=== PATIENT | female | born 1990 | race Caucasian/White ===

== ENCOUNTER 2020-05-20 12:08 | Emergency (ER) | payer BC, SELFPAY ==
[2020-05-20 12:25] VITALS: BP 112/79; PULSE 94; RESP 14; TEMP 36.8; O2SAT 98; BMI 24.2
--- NOTE | 2020-05-20 12:30 | HMH.EDUTC ---
[facility] [place] Clinical Impression: Exposure to COVID-19 virus, Viral syndrome Disposition: Home, Self-Care Condition on Discharge: Good Instructions: Preventing the Spread of Coronavirus Discharge Instructions Additional Instructions: Drink plenty of fluids. Take tylenol for pain or fever. Return if you begin to have difficulty breathing. Follow up with your regular doctor. GO TO THE ER FOR ANY WORSENING SYMPTOMS Prescriptions: Ondansetron [Zofran 4mg ODT] 4 mg PO Q8HP PRN #12 tab.rapdis PRN Reason: Nausea Transmission Status: Received by [id number] Referrals: Lila Calixto MD [Primary Care Provider] - Time of Disposition: 12:40 Medical Decision Making - Medical Records Medical records reviewed: No: I reviewed the patient's medical records. - Bryant Inquiry Pt receiving controlled substance: No Vital Signs: 05/20/20 12:25 05/20/20 12:42 Temperature 98.2 F 98.2 F Temperature Source Oral Pulse Rate 94 H Pulse Rate [Right Brachial] 94 H Respiratory Rate 14 14 Blood Pressure 112/79 Blood Pressure [Right Arm] 112/79 Blood Pressure Mean [Right Arm] 90 Blood Pressure Source [Right Arm] Automatic Cuff Blood Pressure Position [Right Arm] Sitting 02 Sat by Pulse Oximetry 98 Oxygen Delivery Method Room Air Orders (Tests/Meds): ORDERS Category Date Time Status Covid-19 Nasal PCR Sendout Dirk Routine Lab 05/20/20 12:20 Received [facility] - General Stated complaint: covid test Time Seen by Provider: 05/20/20 12:31 - History of Present Illness Provider Complaint: She states that she was exposed to covid at her workplace last week. She was sent here to get tested for covid. She has had some nausea and diarrhea. - Related Data Home Medications Medication Instructions Recorded Confirmed Buspirone HCl [Buspar 5mg tablet] 7.5 mg PO BIDP PRN 05/27/19 05/27/19 Escitalopram Oxalate [Lexapro] 10 mg PO DAILY 05/27/19 05/27/19 Previous Rx's Medication Instructions Recorded Potassium Chloride [Klor-con 20 20 meq PO DAILY #5 tab 05/27/19 mEq tablet] Propranolol HCl [Propranolol HCl 120 mg PO DAILY 30 Days #30 05/27/19 ER] cap.sa.24h hydrOXYzine pamoate [Vistaril] 25 mg PO Q6H PRN #20 cap 06/09/19 Ondansetron [Zofran 4mg ODT] 4 mg PO Q8HP PRN #12 tab.rapdis 05/20/20 Allergies Allergy/AdvReac Type Severity Reaction Status Date / Time cephalexin [From Keflex] Allergy Intermediate rash and Verified 07/09/18 12:54 throat tightness [facility] History - Hepatitis A Screen Attestation statement:: This patient has been screened for Hepatitis A risk factors. I have reviewed the patient's past medical history: Yes Laterality Cases: Bilateral: Myringotomy (Ear Tubes) Amputation: No Fractures: No Comment: ovarian cyst removed, wisdom teeth removed. - Social History Smoking Status: Current every day smoker Tobacco Type: cigarettes # Packs/Day (cigarettes): 1 Alcohol Intake: never Occupational Status: employed Housing: house ROS Obtained: Yes All systems reviewed & no additional complaints - Constitutional Constitutional: Reports system reviewed and no additional complaints, except as docu - Eyes Eyes: Reports system reviewed and no additional complaints, except as docu - ENT Ears, Nose, Mouth, and Throat: Reports system reviewed and no additional complaints, except as docu - Cardiovascular Cardiovascular: Reports system reviewed and no additional complaints, except as docu - Respiratory Respiratory: Yes system reviewed and no additional complaints, except as docu - Gastrointestinal Gastrointestingal: Reports: system reviewed and no additional complaints, except as docu Physical Exam - General General appearance: alert, in no apparent distress - Head Head exam: atraumatic, normocephalic, normal inspection - Eye Eye exam: Present: normal appearance, PERRL, EOMI - ENT ENT exam: Present: normal e
[2020-05-20 12:42] VITALS: BP 112/79; PULSE 94; RESP 14; TEMP 36.8; O2SAT 98
[2020-05-22 06:04] LABS: Covid-19 Nasal PCR Sendout Lex NOT DETECTED
== END 2020-05-20 12:45 | disposition home or self-care (01) ==
PROVIDERS: Emergency Provider Nurse Practitioner Family; PCP Family Medicine
DX: Z20.828 Contact with and (suspected) exposure to other viral communicable diseases (principal); B34.9 Viral infection, unspecified; F17.210 Nicotine dependence, cigarettes, uncomplicated
CPT/HCPCS: 99201; U0004

== ENCOUNTER → 2021-02-25 14:05 | Outpatient (CLI) | payer BC, SELFPAY | PROVIDERS: PCP Family Medicine; Visit Provider Nurse Practitioner | DX: Z20.822 Contact with and (suspected) exposure to COVID-19 (principal) | CPT/HCPCS: C9803; U0003; U0005 ==

== ENCOUNTER → 2021-04-21 10:18 | Outpatient (CLI) | payer BC, SELFPAY | PROVIDERS: Visit Provider Nurse Practitioner | DX: Z20.822 Contact with and (suspected) exposure to COVID-19 (principal) | CPT/HCPCS: C9803; U0003; U0005 ==

== ENCOUNTER → 2021-04-24 12:15 | Outpatient (CLI) | payer BC, SELFPAY | PROVIDERS: PCP Family Medicine; Visit Provider Nurse Practitioner | DX: Z20.822 Contact with and (suspected) exposure to COVID-19 (principal) | CPT/HCPCS: C9803; U0003; U0005 ==

== ENCOUNTER 2021-05-05 09:44 | Emergency (ER) | payer BC, SELFPAY ==
[2021-05-05 11:14] VITALS: BP 117/81; PULSE 86; RESP 16; TEMP 36.5; O2SAT 97; BMI 24.2
[2021-05-05 11:14] LABS: UTC Strep Screen (Rapid) Positive (Negative)
[2021-05-05 11:18] VITALS: BP 117/81; PULSE 86; RESP 16; TEMP 36.5
--- NOTE | 2021-05-05 11:18 | HMH.EDUTC ---
[facility] [place] Clinical Impression: Strep throat Disposition: Home, Self-Care Condition on Discharge: Good Instructions: Strep Throat, DI for Strep Throat Additional Instructions: Drink plenty of fluids. Take tylenol or ibuprofen for pain or fever. Take the medications as directed. Follow up with your regular doctor. GO TO THE ER FOR ANY WORSENING SYMPTOMS Throw your tooth brush away and get a new one. Prescriptions: Brompheniramine/Pseudoephed/Dm [Bromfed Dm Cough Syrup] 5 ml PO Q6HP PRN #240 ml PRN Reason: Cough Transmission Status: Received by [facility] Amoxicillin/Potassium Clav [Augmentin 500mg tab] 500 mg PO TID #30 tab Transmission Status: Received by [facility] predniSONE [Deltasone 10mg tablet] 10 mg PO BID 4 Days #8 tab Transmission Status: Received by [facility] Referrals: Lila Calixto MD [Primary Care Provider] - Time of Disposition: 11:38 Medical Decision Making - Medical Records Medical records reviewed: No: I reviewed the patient's medical records. - Bryant Inquiry Pt receiving controlled substance: No Vital Signs: 05/05/21 11:14 05/05/21 11:18 Temperature 97.7 F 97.7 F Temperature Source Oral Pulse Rate 86 Pulse Rate [Left] 86 Respiratory Rate 16 16 Blood Pressure 117/81 Blood Pressure [Right Arm] 117/81 Blood Pressure Mean [Right Arm] 93 02 Sat by Pulse Oximetry 97 - Lab Data Lab results reviewed: Yes: I reviewed the patient's lab results. Lab Results 05/05/21 10:52: Strep Scn Rapid Clinic Positive [facility] [place] - General Stated complaint: fever, chest congestion Time Seen by Provider: 05/05/21 11:18 Mode of Arrival: Ambulatory Source of Information: Patient Limitations: No Limitations Description of Symptoms (Recalled from Triage Doc. by RN): pt c/o cough and nasal/chest congestion. HEENT Symptoms (Recalled from RN notes): Yes (nasal congestion) Resp Symptoms (Recalled from RN notes): Yes (cough and chest congestion) Skin Symptoms (Recalled from RN notes): No MS Symptoms (Recalled from RN notes): No Functional Status (Recalled from RN notes): na - History of Present Illness Provider Complaint: She c/o sore throat and feeling bad for the past 4 days. - Related Data Home Medications Medication Instructions Recorded Confirmed Buspirone HCl [Buspar 5mg tablet] 7.5 mg PO BIDP PRN 05/27/19 05/27/19 Escitalopram Oxalate [Lexapro] 10 mg PO DAILY 05/27/19 05/27/19 Previous Rx's Medication Instructions Recorded Potassium Chloride [Klor-con 20 20 meq PO DAILY #5 tab 05/27/19 mEq tablet] Propranolol HCl [Propranolol HCl 120 mg PO DAILY 30 Days #30 05/27/19 ER] cap.sa.24h hydrOXYzine pamoate [Vistaril] 25 mg PO Q6H PRN #20 cap 06/09/19 Ondansetron [Zofran 4mg ODT] 4 mg PO Q8HP PRN #12 tab.rapdis 05/20/20 Amoxicillin/Potassium Clav 500 mg PO TID #30 tab 05/05/21 [Augmentin 500mg tab] Brompheniramine/Pseudoephed/Dm 5 ml PO Q6HP PRN #240 ml 05/05/21 [Bromfed Dm Cough Syrup] predniSONE [Deltasone 10mg tablet] 10 mg PO BID 4 Days #8 tab 05/05/21 Allergies Allergy/AdvReac Type Severity Reaction Status Date / Time cephalexin [From Keflex] Allergy Intermediate rash and Verified 07/09/18 12:54 throat tightness - Worker's Comp Is this a Worker's Comp case?: No [facility] History - Hepatitis A Screen Drug use history?: No High risk sexual behaviors?: No History of sexually transmitted infection?: No Currently employed?: No Childcare worker?: No Do you have indoor plumbing?: Yes Do you have electricity?: Yes Attestation statement:: This patient has been screened for Hepatitis A risk factors. I have reviewed the patient's past medical history: Yes Laterality Cases: Bilateral: Myringotomy (Ear Tubes) Amputation: No Fractures: No Comment: ovarian cyst removed, wisdom teeth removed. - Social History Smoking Status: Current every day smoker Tobacco Typ
== END 2021-05-05 11:49 | disposition home or self-care (01) ==
PROVIDERS: Emergency Provider Nurse Practitioner Family; PCP Family Medicine
DX: J02.0 Streptococcal pharyngitis (principal); F17.210 Nicotine dependence, cigarettes, uncomplicated
CPT/HCPCS: 87880; 99202; G0463

== ENCOUNTER → 2021-07-22 12:00 | Outpatient (CLI) | payer BC, SELFPAY ==
[2021-07-23 07:11] LABS: Covid-19 Nasal PCR Sendout Lex NOT DETECTED
== END ==
PROVIDERS: PCP Family Medicine; Visit Provider Nurse Practitioner
DX: Z20.822 Contact with and (suspected) exposure to COVID-19 (principal)
CPT/HCPCS: C9803; U0004; U0005

== ENCOUNTER 2021-07-24 09:14 | Emergency (ER) | payer BC, SELFPAY ==
[2021-07-24 09:58] VITALS: BP 127/88; PULSE 86; RESP 19; TEMP 36.7; O2SAT 98; BMI 25.0
[2021-07-24 10:22] LABS: Adenovirus,PCR Not Detected (NotDetected); Bordetella Pertussis Not Detected (NotDetected); Chlamydophila Pneumoniae, PCR Not Detected (NotDetected); Coronavirus 19, PCR Not Detected (NotDetected); Coronavirus 229E Not Detected (NotDetected); Coronavirus NL63 Not Detected (NotDetected); Coronavirus OC43 Not Detected (NotDetected); Coronovirus HKU1,PCR Not Detected (NotDetected); Human Metapneumovirus Not Detected (NotDetected); Influenza A, PCR Not Detected (NotDetected); Influenza AH1, 2009 Not Detected (NotDetected); Influenza AH1, PCR Not Detected (NotDetected); Influenza AH3,PCR Not Detected (NotDetected); Influenza B, PCR Not Detected (NotDetected); Mycoplasma Pneumoniae, PCR Not Detected (NotDetected); Parainfluenza 1, PCR Not Detected (NotDetected); Parainfluenza 2, PCR Not Detected (NotDetected); Parainfluenza 3, PCR Not Detected (NotDetected); Parainfluenza 4, PCR Not Detected (NotDetected); Respiratory Syncytial Virus Not Detected (NotDetected); Rhinovirus/Enterovirus Not Detected (NotDetected)
--- NOTE | 2021-07-24 10:31 | HMH.EDUTC ---
[facility] [place] Clinical Impression: Viral syndrome, Exposure to COVID-19 virus Disposition: Home, Self-Care Condition on Discharge: Good Instructions: DI for COVID-19 (Suspected or Confirmed ), Preventing the Spread of Coronavirus Discharge Instructions Additional Instructions: Drink plenty of fluids. Take tylenol or ibuprofen for pain or fever. Take the medications as directed. Follow up with your regular doctor. GO TO THE ER FOR ANY WORSENING SYMPTOMS Quarantine until you know the results of your covid-19 test. Notify your school or workplace of your results and follow their instructions regarding return to work/school. The cough medication (promethazine dm) will make you drowsy, so don't drive or operate heavy machinery after taking it. Prescriptions: Ibuprofen [Ibuprofen 600mg Tablet] 600 mg PO Q6HP PRN #30 tab PRN Reason: Mild Pain [facility] Promethazine/Dextromethorphan [Promethazine-Dm Syrup] 5 ml PO Q6HP PRN #240 ml PRN Reason: Cough Transmission Status[facility] Ondansetron [Zofran 4mg ODT] 4 mg PO Q8HP PRN #20 tab PRN Reason: Nausea Transmission [facility] Referrals: Lila Calixto MD [Primary Care Provider] - Forms: Work/School Release Time of Disposition: 10:57 Medical Decision Making - Medical Records Medical records reviewed: No: I reviewed the patient's medical records. - Bryant Inquiry Pt receiving controlled substance: No Vital Signs: 07/24/21 09:58 07/24/21 11:02 Temperature 98.1 F 98.1 F Temperature Source Oral Pulse Rate 86 Pulse Rate [Left] 86 Respiratory Rate 19 19 Blood Pressure 127/88 Blood Pressure [Right Arm] 127/88 Blood Pressure Mean [Right Arm] 101 02 Sat by Pulse Oximetry 98 - Lab Data Lab results reviewed: Yes: I reviewed the patient's lab results. Lab Results 07/24/21 09:58: Chlamy pneumoniae PCR Not detected, Adenovirus (PCR) Not detected, B. pertussis DNA (PCR) Not detected, Coronavirus OC43 (PCR) Not detected, Coronavirus HKU1 (PCR) Not detected, Coronavirus 229E (PCR) Not detected, SARS-CoV-2 (PCR) Not detected, Coronavirus NL63 (PCR) Not detected, Human Metapneumovir PCR Not detected, Influenza A (H1) PCR Not detected, Influ A (H1N1/09) PCR Not detected, Influenza A (H3) PCR Not detected, Influenza Type A (PCR) Not detected, Influenza Type B (PCR) Not detected, M. pneumoniae (PCR) Not detected, Parainfluenza 1 (PCR) Not detected, Parainfluenza 2 (PCR) Not detected, Parainfluenza 3 (PCR) Not detected, Parainfluenza 4 (PCR) Not detected, RSV (PCR) Not detected, Entero/Rhino (PCR) Not detected 07/24/21 09:58: Group A Strep Rapid Negative Orders (Tests/Meds): ORDERS Category Date Time Status Strep Screen Confirmation Stat Micro 07/24/21 09:58 Received [facility] [place] HPI - General Stated complaint: sore throat,headache Time Seen by Provider: 07/24/21 10:31 Mode of Arrival: Ambulatory Source of Information: Patient Limitations: No Limitations Description of Symptoms (Recalled from Triage Doc. by RN): pt c/o a sore throat, cough, congestion POLANCO and fever. x4 days. HEENT Symptoms (Recalled from RN notes): Yes Resp Symptoms (Recalled from RN notes): Yes Skin Symptoms (Recalled from RN notes): No MS Symptoms (Recalled from RN notes): No Functional Status (Recalled from RN notes): wnl - History of Present Illness Provider Complaint: She c/o feeling bad for the past 4 days. She has had fatigue, headache, scratchy sore throat and body aches. - Related Data Home Medications Medication Instructions Recorded Confirmed Buspirone HCl [Buspar 5mg tablet] 7.5 mg PO BIDP PRN 05/27/19 05/27/19 Escitalopram Oxalate [Lexapro] 10 mg PO DAILY 05/27/19 05/27/19 Previous Rx's Medication Instructions Recorded Potassium Chloride [Klor-con 20 20 meq PO DAILY #5 tab 05/27/19 mEq tablet] Propranolol HCl [Propranolol
[2021-07-24 10:44] LABS: Strep Scrn Group A (Rapid) Negative (Negative)
[2021-07-24 11:02] VITALS: BP 127/88; PULSE 86; RESP 19; TEMP 36.7
== END 2021-07-24 11:03 | disposition home or self-care (01) ==
PROVIDERS: Emergency Provider Nurse Practitioner Family; PCP Family Medicine
DX: B34.9 Viral infection, unspecified (principal); Z20.822 Contact with and (suspected) exposure to COVID-19
CPT/HCPCS: 87430; 87581; 87632; 87798; 99203; C9803; G0463; U0003; U0005

== ENCOUNTER 2021-08-26 20:01 | Emergency (ER) | payer BC, SELFPAY ==
[2021-08-26 20:02] VITALS: BP 128/78; PULSE 85; RESP 18; TEMP 36.9; O2SAT 95; BMI 24.2
[2021-08-26 20:09] VITALS: BP 128/78; PULSE 81; RESP 18; TEMP 36.7; O2SAT 99
[2021-08-26 20:21] LABS: Microscopic, Urine URINE MICROSCOPIC (MICROSCOPIC)
[2021-08-26 20:28] LABS: Appearance,Urine CLEAR (Clear); Bilirubin,Urine Negative (Negative); Blood, Urine Negative (Negative); Color,Urine YELLOW (Yellow); Glucose,Urine (UA) Negative (Negative); Ketones,Urine Negative (Negative); Leukocyte Esterase,Urine Negative (Negative); Nitrate,Urine Negative (Negative); Protein,Urine Negative (Negative); Urobilinogen,Urine 0.2 EU/dl (0.2)
[2021-08-26 20:30] LABS: Urine Pregnancy, HCG Qual. Negative (Negative)
[2021-08-26 20:33] LABS: Basophils # 0.1 K/mm3 (0-0.2); Basophils % 1.6 % (0.1-2.0); Eosinophils # 0.1 K/mm3 (0.0-0.4); Eosinophils % 1.4 % (0.1-12.0); Hematocrit 41.4 % (37.0-47.0); Hemoglobin 13.5 g/dL (12.2-16.2); Lymphocytes # 1.7 K/mm3 (0.7-4.5); Lymphocytes % 35.2 % (10-50); Mean Corpuscular HGB Conc 32.6 g/dL (31.8-35.4); Mean Corpuscular Hemoglobin 30.8 pg (27.0-31.2); Mean Corpuscular Volume 94.4 fl (81-99); Mean Platelet Volume 8.7 fl (7.4-10.4); Monocytes # 0.4 K/mm3 (0.1-1.0); Monocytes % 7.2 % (1.7-9.3); Neutrophils # 2.7 K/mm3 (1.8-7.8); Neutrophils % 54.6 % (37.0-80.0); Platelet Count 260 K/mm3 (142-424); Red Blood Count 4.39 M/mm3 (4.20-5.40); Red Cell Distribution Width 13.2 % (11.5-17.5)
[2021-08-26 20:41] LABS: Alanine Aminotransferase 12 U/L (12-78); Albumin Level 4.3 g/dl (3.5-5.0); Albumin/Globulin Ratio 1.8 (1.1-1.8); Alkaline Phosphatase 55 U/L (38-126); Anion Gap 7.7 mEq/L (5-15); Aspartate Amino Transferase 17 U/L (14-36); Bilirubin,Total 0.4 mg/dl (0.2-1.3); Blood Urea Nitrogen 14 mg/dl (7-17); Calcium 8.7 mg/dl (8.4-10.2); Carbon Dioxide 27 mmol/L (22.0-30.0); Chloride 104 mmol/L (98-107); Creatinine Clearance Estimated 88 mL/min (50-200); Estimated Glomerular Filt Rate 65 ml/min (>60); GFR (African American) 78 ML/MIN (>60); Globulin 2.4 g/dL (1.3-3.2); Glucose 94 mg/dl (74-100); Lipase 132 U/L (23-300); Potassium 3.7 mmoL/L (3.5-5.1); Sodium 135 mmol/L (136-145); Total Protein,Serum 6.7 g/dl (6.3-8.2)
[2021-08-26 21:15] VITALS: PULSE 81; O2SAT 100
--- NOTE | 2021-08-26 21:25 | CT_ITS ---
PROCEDURE INFORMATION: Exam: CT Abdomen And Pelvis Without Contrast Exam date and time: 08/26/2021 9:31 PM Age: 30 years old Clinical indication: Abdominal pain; Flank; Right; Prior surgery; Surgery type: 2 c-sections; Additional info: Epigastric and rlq abd pain TECHNIQUE: Imaging protocol: Computed tomography of the abdomen and pelvis without contrast. Radiation optimization: All CT scans at this facility use at least one of these dose optimization techniques: automated exposure control; mA and/or kV adjustment per patient size (includes targeted exams where dose is matched to clinical indication); or iterative reconstruction. COMPARISON: CR XR CHEST 2V 06/09/2019 1:50 PM FINDINGS: Lungs: No mass/infiltrate at either lung base. No pleural effusion. Liver: The liver is normal in size and attenuation. No intrahepatic biliary dilitation. Gallbladder and bile ducts: Normal. No calcified stones. No ductal dilation. Gallbladder wall thickness is normal. Pancreas: Normal. No ductal dilation. Spleen: Normal. No splenomegaly. Adrenal glands: Normal. No mass. Kidneys and ureters: Normal. No hydronephrosis. Stomach and bowel: Rectal and colonic fecal stasis. No obstruction. No mucosal thickening. Small bowel mesentery is normal. Appendix: Unremarkable. Intraperitoneal space: Unremarkable. No free air. No significant fluid collection. Vasculature: Unremarkable. No abdominal aortic aneurysm. There are calcified phleboliths within the pelvis. Lymph nodes: Unremarkable. No enlarged lymph nodes. Urinary bladder: Unremarkable as visualized. Reproductive: Unremarkable as visualized. Bones/joints: Unremarkable. No acute fracture. Soft tissues: Unremarkable. IMPRESSION: 1. Rectal and colonic fecal stasis. 2. No evidence of acute process within the abdomen or pelvis.
--- NOTE | 2021-08-26 21:27 | HMH.EDGENADL ---
ED Disposition Clinical Impression: Epigastric abdominal pain Constipation Qualifiers: Constipation type: unspecified constipation type Qualified Code(s): K59.00 - Constipation, unspecified Disposition: Home, Self-Care Condition on Discharge: Good Instructions: DI for Acute Abdominal Pain Additional Instructions: Please follow-up with your primary care provider as scheduled, with any new worsening symptoms please return to the ED. we have given you treatment for peptic ulcer empirically with nausea medication, Carafate, Protonix. Prescriptions: Sucralfate [Carafate 1gm/10mL Susp] 10 ml PO ACHS #500 ml Transmission Status: Received by [facility] Pantoprazole Sodium [Protonix 40mg tablet] 40 mg PO DAILY #30 tab Transmission Status: Received by [facility] Ondansetron [Zofran 4mg ODT] 4 mg PO TIDP PRN #12 tab PRN Reason: Nausea [facility] Referrals: Lila Calixto MD [Primary Care Provider] - - Critical Care Critical Care Time: No Attestation: On 08/26/21, the high probability of a clinically significant, sudden or life threatening deterioration of the following system(s) required my full and direct attention, intervention and personal management. The time I documented below is in addition to time spent performing reported procedures but includes the following listed in this critical care notation. Medical Decision Making - Medical Records Medical records reviewed: Yes: I reviewed the patient's medical records. - Bryant Inquiry Pt receiving controlled substance: No Vital Signs: 08/26/21 20:02 08/26/21 20:09 08/26/21 21:15 Temperature 98.4 F 98.1 F Temperature Source Oral Pulse Rate 81 81 Pulse Rate [Right] 85 Respiratory Rate 18 18 Blood Pressure 128/78 Blood Pressure [Right Arm] 128/78 Blood Pressure Mean 87 Blood Pressure Mean [Right Arm] 94 02 Sat by Pulse Oximetry 95 99 100 08/26/21 22:00 Temperature Temperature Source Pulse Rate 79 Pulse Rate [Right] Respiratory Rate Blood Pressure Blood Pressure [Right Arm] Blood Pressure Mean Blood Pressure Mean [Right Arm] 02 Sat by Pulse Oximetry 99 - Lab Data Lab Results 08/26/21 20:10: Urine Color Yellow, Urine Appearance Clear, Urine pH 7.0, Ur Specific [place] 1.020, Urine Protein Negative, Urine Glucose (UA) Negative, Urine Ketones Negative, Urine Blood Negative, Urine Nitrate Negative, Urine Bilirubin Negative, Urine Urobilinogen 0.2, Ur Leukocyte Esterase Negative, Urine RBC None, Urine WBC None, Ur Squamous Epith Cells None, Urine Bacteria None 08/26/21 20:10: Urine HCG, Qual Negative 08/26/21 20:24: WBC 5.0, RBC 4.39, Hgb 13.5, Hct 41.4, MCV 94.4, MCH 30.8, MCHC 32.6, RDW 13.2, Plt Count 260, MPV 8.7, Neut % (Auto) 54.6, Lymph % (Auto) 35.2, Kings % (Auto) 7.2, Eos % (Auto) 1.4, Baso % (Auto) 1.6, Neut # (Auto) 2.7, Lymph # (Auto) 1.7, Kings # (Auto) 0.4, Eos # (Auto) 0.1, Baso # (Auto) 0.1 08/26/21 20:24: Sodium 135 L, Potassium 3.7, Chloride 104, Carbon Dioxide 27, Anion Gap 7.7, BUN 14, Creatinine 1.00, Estimated Creat Clear 88, Estimated GFR 65, Est GFR ( Amer) 78, Glucose 94, Calcium 8.7, Total Bilirubin 0.4, AST 17, ALT 12, Alkaline Phosphatase 55, Total Protein 6.7, Albumin 4.3, Globulin 2.4, Albumin/Globulin Ratio 1.8, Lipase 132 Result diagrams: 08/26/21 20:24 08/26/21 20:24 Medical Decision Narrative: Patient is a 30-year-old female who presents the ED today for further evaluation of right upper right lower quadrant abdominal pain with epigastric sensation of fullness for the last 3 weeks but worse in the last 24 hours. Patient is well-appearing on initial evaluation no acute distress, vital signs within normal limits and stable on reassessment. Will work-up patient with CBC, CMP, urinalysis, lipase, and right upper quadrant ultrasound. We had wanted to obtain a full right upper quadrant study, however ultrasound is not i
[2021-08-26 22:00] VITALS: PULSE 79; O2SAT 99
[2021-08-26 22:56] VITALS: BP 115/75; PULSE 72; RESP 18; TEMP 36.7; O2SAT 99
== END 2021-08-26 22:57 | disposition home or self-care (01) ==
PROVIDERS: Emergency Provider Student in an Organized Health Care Education/Training Program; PCP Family Medicine
DX: K59.00 Constipation, unspecified (principal); R10.31 Right lower quadrant pain; F17.210 Nicotine dependence, cigarettes, uncomplicated; Z79.899 Other long term (current) drug therapy
CPT/HCPCS: 74176; 80053; 81001; 81025; 83690; 85025; 99284

== ENCOUNTER 2021-11-07 11:58 | Emergency (ER) | payer BC, SELFPAY ==
[2021-11-07 12:27] VITALS: BP 122/84; PULSE 97; RESP 16; TEMP 36.9; O2SAT 100; BMI 25.0
--- NOTE | 2021-11-07 12:39 | HMH.EDUTC ---
[facility] [place] Clinical Impression: Viral syndrome, Exposure to COVID-19 virus, Bronchitis Sinusitis Qualifiers: Sinusitis location: unspecified location Chronicity: acute Recurrence: non-recurrent Qualified Code(s): J01.90 - Acute sinusitis, unspecified Disposition: Home, Self-Care Condition on Discharge: Good Instructions: Sinusitis, DI for Sinusitis, DI for Acute Bronchitis, DI for COVID-19 (Suspected or Confirmed ), Preventing the Spread of Coronavirus Discharge Instructions Additional Instructions: Drink plenty of fluids. Take tylenol or ibuprofen for pain or fever. Take the medications as directed. Follow up with your regular doctor. GO TO THE ER FOR ANY WORSENING SYMPTOMS Quarantine until you know the results of your covid-19 test. Notify your school or workplace of your results and follow their instructions regarding return to work/school. Prescriptions: Brompheniramine/Pseudoephed/Dm [Bromfed Dm Cough Syrup] 5 ml PO Q6HP PRN #240 ml PRN Reason: Cough Transmission Status: Received by [facility] methylPREDNISolone [Medrol] 4 mg PO DIRECTED 6 Days #21 packet Transmission Status: Received by [facility] Azithromycin [Z-Jadiel 250mg Tab*] 250 mg PO UD DOSE PK #6 tab Transmission Status: Received by [facility] Referrals: Lila Calixto MD [Primary Care Provider] - Forms: Work/School Release Time of Disposition: 13:18 Medical Decision Making - Medical Records Medical records reviewed: No: I reviewed the patient's medical records. - Bryant Inquiry Pt receiving controlled substance: No Vital Signs: 11/07/21 12:27 11/07/21 13:19 Temperature 98.5 F 98.5 F Temperature Source Oral Pulse Rate 97 H Pulse Rate [Left Radial] 97 H Respiratory Rate 16 16 Blood Pressure 122/84 Blood Pressure [Right Arm] 122/84 Blood Pressure Mean [Right Arm] 96 02 Sat by Pulse Oximetry 100 - Lab Data Lab results reviewed: Yes: I reviewed the patient's lab results. Lab Results 11/07/21 13:14: Chlamy pneumoniae PCR Not detected, Adenovirus (PCR) Not detected, B. pertussis DNA (PCR) Not detected, Coronavirus OC43 (PCR) Not detected, Coronavirus HKU1 (PCR) Not detected, Coronavirus 229E (PCR) Not detected, SARS-CoV-2 (PCR) Not detected, Coronavirus NL63 (PCR) Not detected, Human Metapneumovir PCR Not detected, Influenza A (H1) PCR Not detected, Influ A (H1N1/09) PCR Not detected, Influenza A (H3) PCR Not detected, Influenza Type A (PCR) Not detected, Influenza Type B (PCR) Not detected, M. pneumoniae (PCR) Not detected, Parainfluenza 1 (PCR) Not detected, Parainfluenza 2 (PCR) Not detected, Parainfluenza 3 (PCR) Not detected, Parainfluenza 4 (PCR) Not detected, RSV (PCR) Not detected, Entero/Rhino (PCR) Not detected 11/07/21 13:18: Group A Strep Rapid Negative Orders (Tests/Meds): ORDERS Category Date Time Status Strep Screen Confirmation Stat Micro 11/07/21 13:18 Received [facility] [place] - General Stated complaint: cough,congestion Time Seen by Provider: 11/07/21 12:39 Source of Information: Patient Description of Symptoms (Recalled from Triage Doc. by RN): patient comes in with complaints of cough, congestion, and sore throat. symptoms began 3 days ago. HEENT Symptoms (Recalled from RN notes): Yes Resp Symptoms (Recalled from RN notes): Yes Skin Symptoms (Recalled from RN notes): No MS Symptoms (Recalled from RN notes): No Functional Status (Recalled from RN notes): wnl - History of Present Illness Provider Complaint: She states that for the past 3 days she has had a sore throat and sinus congstion. - Related Data Home Medications Medication Instructions Recorded Confirmed Buspirone HCl [Buspar 5mg tablet] 7.5 mg PO BIDP PRN 05/27/19 05/27/19 Escitalopram Oxalate [Lexapro] 10 mg PO DAILY 05/27/19 05/27/19 Previous Rx's Medication Instructions Recorded Potassium Chloride [Klor-con 20 20 meq PO DAILY #5 tab 05/27/19 mEq tablet]
[2021-11-07 13:19] VITALS: BP 122/84; PULSE 97; RESP 16; TEMP 36.9
[2021-11-07 13:31] LABS: Adenovirus,PCR Not Detected (NotDetected); Bordetella Pertussis Not Detected (NotDetected); Chlamydophila Pneumoniae, PCR Not Detected (NotDetected); Coronavirus 19, PCR Not Detected (NotDetected); Coronavirus 229E Not Detected (NotDetected); Coronavirus NL63 Not Detected (NotDetected); Coronavirus OC43 Not Detected (NotDetected); Coronovirus HKU1,PCR Not Detected (NotDetected); Human Metapneumovirus Not Detected (NotDetected); Influenza A, PCR Not Detected (NotDetected); Influenza AH1, 2009 Not Detected (NotDetected); Influenza AH1, PCR Not Detected (NotDetected); Influenza AH3,PCR Not Detected (NotDetected); Influenza B, PCR Not Detected (NotDetected); Mycoplasma Pneumoniae, PCR Not Detected (NotDetected); Parainfluenza 1, PCR Not Detected (NotDetected); Parainfluenza 2, PCR Not Detected (NotDetected); Parainfluenza 3, PCR Not Detected (NotDetected); Parainfluenza 4, PCR Not Detected (NotDetected); Respiratory Syncytial Virus Not Detected (NotDetected); Rhinovirus/Enterovirus Not Detected (NotDetected)
[2021-11-07 13:32] LABS: Strep Scrn Group A (Rapid) Negative (Negative)
== END 2021-11-07 13:27 | disposition home or self-care (01) ==
PROVIDERS: Emergency Provider Nurse Practitioner Family; PCP Family Medicine
DX: J20.8 Acute bronchitis due to other specified organisms (principal); J01.90 Acute sinusitis, unspecified; Z20.822 Contact with and (suspected) exposure to COVID-19
CPT/HCPCS: 87430; 87581; 87632; 87798; 99212; C9803; G0463; U0003; U0005

== ENCOUNTER 2021-11-29 09:36 | Emergency (ER) | payer BC, SELFPAY ==
[2021-11-29 10:20] VITALS: BP 125/77; PULSE 76; RESP 18; TEMP 36.8; O2SAT 99; BMI 25.4
[2021-11-29 10:49] LABS: Adenovirus,PCR Not Detected (NotDetected); Bordetella Pertussis Not Detected (NotDetected); Chlamydophila Pneumoniae, PCR Not Detected (NotDetected); Coronavirus 19, PCR Not Detected (NotDetected); Coronavirus 229E Not Detected (NotDetected); Coronavirus NL63 Not Detected (NotDetected); Coronavirus OC43 Not Detected (NotDetected); Coronovirus HKU1,PCR Not Detected (NotDetected); Human Metapneumovirus Not Detected (NotDetected); Influenza A, PCR Not Detected (NotDetected); Influenza AH1, 2009 Not Detected (NotDetected); Influenza AH1, PCR Not Detected (NotDetected); Influenza AH3,PCR Not Detected (NotDetected); Influenza B, PCR Not Detected (NotDetected); Mycoplasma Pneumoniae, PCR Not Detected (NotDetected); Parainfluenza 1, PCR Not Detected (NotDetected); Parainfluenza 2, PCR Not Detected (NotDetected); Parainfluenza 3, PCR Not Detected (NotDetected); Parainfluenza 4, PCR Not Detected (NotDetected); Respiratory Syncytial Virus Not Detected (NotDetected); Rhinovirus/Enterovirus Not Detected (NotDetected)
--- NOTE | 2021-11-29 10:56 | HMH.EDUTC ---
[facility] [place] Impression: Exposure to COVID-19 virus, Upper respiratory infection, viral Disposition: Home, Self-Care Condition on Discharge: Good Instructions: DI for Viral Upper Respiratory Infection -- Adult Additional Instructions: covid swab was sent to lab, call tomorrow for results. self isolate until test results are known to be negative No sign of a bacterial infection. Likely viral. Viruses can take 7-14 days to run their course. Nasal saline and bulb syringe or nose Peyton to remove nasal drainage to help with nasal congestion. Hard to eat, drink, sleep with nasal congestion so important to keep this cleaned out. Monitor temp. Tylenol or Motrin as needed for pain or fever Encourage fluids, water, Gatorade, Powerade, Pedialyte if /toddler/child Warm salt water gargles Warm fluids Sore throat lozenges Sleep elevated Humidifier/vaporizer Follow-up immediately for new or worsening symptoms or no noticeable improvement over the next 48-72 hours. Referrals: Lila Calixto MD [Primary Care Provider] - Forms: Work/School Release Time of Disposition: 10:59 Medical Decision Making - Bryant Inquiry Pt receiving controlled substance: No Vital Signs: 11/29/21 10:20 Temperature 98.2 F Temperature Source Oral Pulse Rate [Right Brachial] 76 Respiratory Rate 18 Blood Pressure [Right Arm] 125/77 Blood Pressure Mean [Right Arm] 93 Blood Pressure Source [Right Arm] Automatic Cuff Blood Pressure Position [Right Arm] Sitting 02 Sat by Pulse Oximetry 99 Oxygen Delivery Method Room Air Orders (Tests/Meds): ORDERS Category Date Time Status Full Resp Panel w/COVID ([facility]) Routine Lab 11/29/21 10:22 [place] [facility] [place] - General Chief complaint: Urgent [facility] Stated complaint: cough, congestion, fever Time Seen by Provider: 11/29/21 10:56 Mode of Arrival: Ambulatory Source of Information: Patient Limitations: No Limitations Description of Symptoms (Recalled from Triage Doc. by RN): PATIENT C/O COUGH, FEVER AND HEADACHE SINCE WEDNESDAY HEENT Symptoms (Recalled from RN notes): Yes Resp Symptoms (Recalled from RN notes): Yes Skin Symptoms (Recalled from RN notes): No MS Symptoms (Recalled from RN notes): No Functional Status (Recalled from RN notes): WNL - History of Present Illness Provider Complaint: 31 yr old female presents for cough,hernandez and congestion since . pt states she has been in contact with someone that was exposed to covid but he is not ill - Related Data Home Medications Medication Instructions Recorded Confirmed Buspirone HCl [Buspar 5mg tablet] 7.5 mg PO BIDP PRN 05/27/19 05/27/19 Escitalopram Oxalate [Lexapro] 10 mg PO DAILY 05/27/19 05/27/19 Previous Rx's Medication Instructions Recorded Potassium Chloride [Klor-con 20 20 meq PO DAILY #5 tab 05/27/19 mEq tablet] Propranolol HCl [Propranolol HCl 120 mg PO DAILY 30 Days #30 05/27/19 ER] cap.sa.24h hydrOXYzine pamoate [Vistaril] 25 mg PO Q6H PRN #20 cap 06/09/19 Ondansetron [Zofran 4mg ODT] 4 mg PO Q8HP PRN #12 tab.rapdis 05/20/20 Amoxicillin/Potassium Clav 500 mg PO TID #30 tab 05/05/21 [Augmentin 500mg tab] Brompheniramine/Pseudoephed/Dm 5 ml PO Q6HP PRN #240 ml 05/05/21 [Bromfed Dm Cough Syrup] predniSONE [Deltasone 10mg tablet] 10 mg PO BID 4 Days #8 tab 05/05/21 Ibuprofen [Ibuprofen 600mg 600 mg PO Q6HP PRN #30 tab 07/24/21 Tablet] Ondansetron [Zofran 4mg ODT] 4 mg PO Q8HP PRN #20 tab 07/24/21 Promethazine/Dextromethorphan 5 ml PO Q6HP PRN #240 ml 07/24/21 [Promethazine-Dm Syrup] Ondansetron [Zofran 4mg ODT] 4 mg PO TIDP PRN #12 tab 08/26/21 Pantoprazole Sodium [Protonix 40mg 40 mg PO DAILY #30 tab 08/26/21 tablet] Sucralfate [Carafate 1gm/10mL 10 ml PO ACHS #500 ml 08/26/21 Susp] Azithromycin [Z-Jadiel 250mg Tab*] 250 mg PO UD DOSE PK #6 tab 11/07/21 Brompheniramine/Pseudoephed/Dm 5 ml PO Q6HP PRN #240 ml 11/07/21 [Bromfed Dm Cough Syrup]
[2021-11-29 10:58] VITALS: BP 125/77; PULSE 76; RESP 18; TEMP 36.8; O2SAT 99
== END 2021-11-29 11:04 | disposition home or self-care (01) ==
PROVIDERS: Emergency Provider Nurse Practitioner Family; PCP Family Medicine
DX: J06.9 Acute upper respiratory infection, unspecified (principal); Z20.822 Contact with and (suspected) exposure to COVID-19; F17.210 Nicotine dependence, cigarettes, uncomplicated
CPT/HCPCS: 87581; 87632; 87798; 99212; C9803; G0463; U0003; U0005

== ENCOUNTER 2021-12-02 12:45 | Emergency (ER) | payer BC, SELFPAY ==
[2021-12-02] VITALS (8 sets, daily range): BP systolic 114–124; BP diastolic 53–88; PULSE 63–87; RESP 14–18; TEMP 36.5–36.8; O2SAT 99–100; BMI 25.0
[2021-12-02 13:37] LABS: Microscopic, Urine URINE MICROSCOPIC (MICROSCOPIC)
[2021-12-02 13:46] LABS: Appearance,Urine SL CLOUDY (Clear); Bilirubin,Urine Negative (Negative); Blood, Urine TRACE-L (Negative); Color,Urine STRAW (Yellow); Glucose,Urine (UA) Negative (Negative); Ketones,Urine Negative (Negative); Leukocyte Esterase,Urine 2+ (Negative); Nitrate,Urine Negative (Negative); Protein,Urine Negative (Negative); Urobilinogen,Urine 0.2 EU/dl (0.2)
[2021-12-02 14:01] LABS: RBC,Urine Occasional #/hpf (0-3); Yeast,Urine Occasional /lpf
[2021-12-02 14:02] LABS: Basophils # 0.1 K/mm3 (0-0.2); Basophils % 3.5 % (0.1-2.0); Eosinophils # 0.1 K/mm3 (0.0-0.4); Eosinophils % 2.5 % (0.1-12.0); Hematocrit 42.8 % (37.0-47.0); Hemoglobin 13.7 g/dL (12.2-16.2); Lymphocytes # 1.2 K/mm3 (0.7-4.5); Lymphocytes % 34.9 % (10-50); Mean Corpuscular HGB Conc 31.9 g/dL (31.8-35.4); Mean Corpuscular Hemoglobin 30.2 pg (27.0-31.2); Mean Corpuscular Volume 94.5 fl (81-99); Mean Platelet Volume 8.2 fl (7.4-10.4); Monocytes # 0.2 K/mm3 (0.1-1.0); Monocytes % 5.8 % (1.7-9.3); Neutrophils # 1.9 K/mm3 (1.8-7.8); Neutrophils % 53.4 % (37.0-80.0); Platelet Count 240 K/mm3 (142-424); Red Blood Count 4.52 M/mm3 (4.20-5.40); White Blood Count 3.5 K/mm3 (4.8-10.8)
[2021-12-02 14:06] LABS: Chloride 103 mmol/L (98-107); Potassium 3.6 mmoL/L (3.5-5.1); Sodium 137 mmol/L (136-145)
--- NOTE | 2021-12-02 14:06 | HMH.EDGENADL ---
ED Disposition Clinical Impression: Viral gastroenteritis, Paresthesias UTI (urinary tract infection) Qualifiers: Urinary tract infection type: acute cystitis Hematuria presence: without hematuria Qualified Code(s): N30.00 - Acute cystitis without hematuria Disposition: Home, Self-Care Condition on Discharge: Good Instructions: DI for Viral Gastroenteritis -- Adult, DI for Urinary Tract Infection (UTI) Additional Instructions: Follow-up with your primary care provider for further evaluation and care of numb episodes. Return to the emergency department if worsening. Additional instructions for VOMITING/DIARRHEA: See your physician as soon as possible for further evaluation. Drink plenty of fluids. Imodium as needed for diarrhea. Use your home medication for nausea. Return immediately if severe abdominal pain, uncontrollable vomiting, shortness of breath, fever, bloody diarrhea, vomiting of blood or abdominal distention. Additional instructions for URINARY TRACT INFECTION: Take antibiotic as prescribed. Diflucan as prescribed. See your physician in 2-3 days for follow up and culture results. Return immediately if you have an uncontrollable fever greater than 102 degrees, severe back or abdominal pain, inability to urinate, or repetitive vomiting. Prescriptions: Fluconazole [Diflucan 150mg tab] 150 mg PO ONCE #1 tab Transmission Status: Pending to [id number] Nitrofurantoin Monohyd/M-Cryst [Macrobid 100 mg Capsule] 100 mg PO BID #14 cap Transmission Status: Pending to [id number] Referrals: Lila Calixto MD [Primary Care Provider] - - Critical Care Critical Care Time: No Attestation: On 12/02/21, the high probability of a clinically significant, sudden or life threatening deterioration of the following system(s) required my full and direct attention, intervention and personal management. The time I documented below is in addition to time spent performing reported procedures but includes the following listed in this critical care notation. Medical Decision Making - Bryant Inquiry Pt receiving controlled substance: No Vital Signs: 12/02/21 13:09 12/02/21 13:20 12/02/21 13:57 Temperature 97.7 F 98.2 F Temperature Source Oral Oral Pulse Rate 80 Pulse Rate [Left] 87 82 Respiratory Rate 16 18 17 Blood Pressure 124/87 Blood Pressure [Right Arm] 114/83 123/88 Blood Pressure Mean [Right Arm] 93 99 02 Sat by Pulse Oximetry 99 99 100 Oxygen Delivery Method Room Air 06/28/22 15:15 12/02/21 15:37 Temperature Temperature Source Pulse Rate 65 71 Pulse Rate [Left] Respiratory Rate 14 18 Blood Pressure 120/53 L 121/76 Blood Pressure [Right Arm] Blood Pressure Mean [Right Arm] 02 Sat by Pulse Oximetry 100 100 Oxygen Delivery Method Room Air - Lab Data Lab Results 12/02/21 13:25: Urine Color Straw, Urine Appearance Sl cloudy, Urine pH 7.0, Ur Specific [place] 1.010, Urine Protein Negative, Urine Glucose (UA) Negative, Urine Ketones Negative, Urine Blood Trace-l, Urine Nitrate Negative, Urine Bilirubin Negative, Urine Urobilinogen 0.2, Ur Leukocyte Esterase 2+ A, Urine RBC Occasional, Urine WBC 10-20, Ur Squamous Epith Cells 3-5, Urine Bacteria None, Urine Yeast Occasional 12/02/21 13:25: Urine HCG, Qual Negative 12/02/21 13:30: WBC 3.5 L, RBC 4.52, Hgb 13.7, Hct 42.8, MCV 94.5, MCH 30.2, MCHC 31.9, RDW 14.0, Plt Count 240, MPV 8.2, Neut % (Auto) 53.4, Lymph % (Auto) 34.9, [place] % (Auto) 5.8, Eos % (Auto) 2.5, Baso % (Auto) 3.5 H, Neut # (Auto) 1.9, Lymph # (Auto) 1.2, [place] # (Auto) 0.2, Eos # (Auto) 0.1, Baso # (Auto) 0.1 12/02/21 13:30: Sodium 137, Potassium 3.6, Chloride 103, Carbon Dioxide 28, Anion Gap 9.6, BUN 5 L, Creatinine 0.80, Estimated Creat Clear 112, Estimated GFR 83, Est GFR ( Amer) 101, Glucose 74, Calcium 8.9, Total Bilirubin 0.6, AST 25, ALT 14, Alkaline Phosphatase 44, Total Protein 7.2, Albumin 4.4, Globulin 2.8, Albumin/Globulin Ratio 1.6 12/02
[2021-12-02 14:08] LABS: Alanine Aminotransferase 14 U/L (12-78); Aspartate Amino Transferase 25 U/L (14-36); Blood Urea Nitrogen 5 mg/dl (7-17); Creatinine Clearance Estimated 112 mL/min (50-200); Estimated Glomerular Filt Rate 83 ml/min (>60); GFR (African American) 101 ML/MIN (>60)
[2021-12-02 14:09] LABS: Albumin Level 4.4 g/dl (3.5-5.0); Albumin/Globulin Ratio 1.6 (1.1-1.8); Alkaline Phosphatase 44 U/L (38-126); Anion Gap 9.6 mEq/L (5-15); Bilirubin,Total 0.6 mg/dl (0.2-1.3); Calcium 8.9 mg/dl (8.4-10.2); Carbon Dioxide 28 mmol/L (22.0-30.0); Globulin 2.8 g/dL (1.3-3.2); Glucose 74 mg/dl (74-100); Total Protein,Serum 7.2 g/dl (6.3-8.2)
--- NOTE | 2021-12-02 14:17 | CT_ITS ---
FINAL REPORT CLINICAL HISTORY: numbness off and on R side, pt states that she has been experiencing migraines and numbness on the right side for the last few weeks. FINDINGS: Axial images of the head were obtained without contrast. Coronal reformatted images were also obtained.This study was performed with techniques to keep radiation doses as low as reasonably achievable (ALARA). Individualized dose reduction techniques using automated exposure control or adjustment of mA and/or kV according to the patient's size were employed. There is no evidence of intracranial hemorrhage or mass. The ventricular size is within normal limits. There is no evidence of shift of the midline structures. No abnormal extra axial fluid collection is identified. No skull abnormality is seen on the bone window images. IMPRESSION: No acute intracranial abnormality. Reviewed, Interpreted and Dictated by Charli Lee III, MD Transcribed by Cindy Cervantes Authenticated and [facility]
--- NOTE | 2021-12-02 14:29 | PC.NURSE ---
PT GIVEN WARM BLANKET. OFFERS NO C/O AT PRESENT
[2021-12-02 14:33] LABS: Urine Pregnancy, HCG Qual. Negative (Negative)
[2021-12-02 14:37] LABS: Coronavirus 19, PCR Not Detected (NotDetected); Influenza A, PCR Not Detected (NotDetected); Influenza B, PCR Not Detected (NotDetected)
--- NOTE | 2021-12-02 15:27 | PC.NURSE ---
checked on pt at this time, pt requesting something to drink, will ask ER MD pt states no other needs
--- NOTE | 2021-12-02 16:02 | PC.NURSE ---
OSEI LAUREN at going over test results with pt.
== END 2021-12-02 16:35 | disposition home or self-care (01) ==
LOC: UTC 12:50 → ER 13:13
PROVIDERS: Emergency Provider Emergency Medicine; PCP Family Medicine
DX: A08.4 Viral intestinal infection, unspecified (principal); R20.2 Paresthesia of skin; N30.00 Acute cystitis without hematuria
CPT/HCPCS: 70450; 80053; 81001; 81025; 85025; 87086; 87088; 87186; 99284; C9803; U0003; U0005

== ENCOUNTER 2022-01-10 10:12 | Emergency (ER) | payer BC, SELFPAY ==
[2022-01-10 10:20] VITALS: BP 124/87; PULSE 89; RESP 16; TEMP 36.7; O2SAT 99; BMI 25.8
[2022-01-10 10:33] VITALS: BP 124/87; PULSE 89; RESP 16; TEMP 36.7; O2SAT 99
--- NOTE | 2022-01-10 10:45 | HMH.EDUTC ---
[facility] [place] Clinical Impression: Exposure to COVID-19 virus, Upper respiratory infection, viral Disposition: Home, Self-Care Condition on Discharge: Good Instructions: DI for Viral Upper Respiratory Infection -- Adult Additional Instructions: covid swab was sent to lab, call tomorrow for results. self isolate until test results are known to be negative No sign of a bacterial infection. Likely viral. Viruses can take 7-14 days to run their course. Nasal saline and bulb syringe or nose Peyton to remove nasal drainage to help with nasal congestion. Hard to eat, drink, sleep with nasal congestion so important to keep this cleaned out. Monitor temp. Tylenol or Motrin as needed for pain or fever Encourage fluids, water, Gatorade, Powerade, Pedialyte if /toddler/child Warm salt water gargles Warm fluids Sore throat lozenges Sleep elevated Humidifier/vaporizer Follow-up immediately for new or worsening symptoms or no noticeable improvement over the next 48-72 hours. Referrals: Lila Calixto MD [Primary Care Provider] - Time of Disposition: 10:47 Medical Decision Making - Bryant Inquiry Pt receiving controlled substance: No Vital Signs: 01/10/22 10:20 01/10/22 10:33 Temperature 98.1 F 98.1 F Temperature Source Oral Pulse Rate 89 Pulse Rate [Right Brachial] 89 Respiratory Rate 16 16 Blood Pressure 124/87 Blood Pressure [Right Arm] 124/87 Blood Pressure Mean [Right Arm] 99 Blood Pressure Source [Right Arm] Automatic Cuff Blood Pressure Position [Right Arm] Sitting 02 Sat by Pulse Oximetry 99 Oxygen Delivery Method Room Air Orders (Tests/Meds): ORDERS Category Date Time Status Covid-19 Nasal PCR ([facility]) Routine Lab 01/10/22 10:21 Received [facility] [place] - General Chief complaint: Urgent Treatment Center Stated complaint: covid test Time Seen by Provider: 01/10/22 10:45 Mode of Arrival: Ambulatory Source of Information: Patient Limitations: No Limitations Description of Symptoms (Recalled from Triage Doc. by RN): PATIENT C/O COUGH, CONGESTION AND SORE THROAT SINCE WEDNESDAY. REQUESTING COVID TEST HEENT Symptoms (Recalled from RN notes): Yes Resp Symptoms (Recalled from RN notes): Yes Skin Symptoms (Recalled from RN notes): No MS Symptoms (Recalled from RN notes): No Functional Status (Recalled from RN notes): WNL - History of Present Illness Provider Complaint: 31 yr old female presnets for covid test. pt states since weds she has had a cough,sore throat and low grade fever. has taken home test that have been neg. needs a covid test to return to work - Related Data Allergies Allergy/AdvReac Type Severity Reaction Status Date / Time cephalexin [From Keflex] Allergy Intermediate rash and Verified 11/07/21 12:30 throat tightness Cephalosporins Allergy Verified 12/02/21 13:15 - Worker's Comp Is this a Worker's Comp case?: No [facility] History - Hepatitis A Screen Attestation statement:: This patient has been screened for Hepatitis A risk factors. I have reviewed the patient's past medical history: Yes Comment: Ovarian cysts Laterality Cases: Bilateral: Myringotomy (Ear Tubes) Amputation: No Fractures: No Comment: ovarian cyst removed, wisdom teeth removed. - Social History Smoking Status: Current every day smoker Tobacco Type: cigarettes # Packs/Day (cigarettes): 1 Alcohol Intake: never Occupational Status: other Housing: house Family Hx:: No significant family history ROS Obtained: Yes Systems reviewed as appropriate & no additional complaints - Constitutional Constitutional: Reports system reviewed and no additional complaints, except as docu, Reports fever(s) - Eyes Eyes: Reports system reviewed and no additional complaints, except as docu, Denies dry eyes - ENT Ears, Nose, Mouth, and Throat: Reports system reviewed and no additional complaints, except as docu, Reports nasal congestion, Reports nasal discharge, Reports sore throat - Cardiovasc
== END 2022-01-10 10:47 | disposition home or self-care (01) ==
PROVIDERS: Emergency Provider Nurse Practitioner Family; PCP Family Medicine
DX: J06.9 Acute upper respiratory infection, unspecified (principal); J02.9 Acute pharyngitis, unspecified; R50.9 Fever, unspecified; N83.209 Unspecified ovarian cyst, unspecified side; F17.210 Nicotine dependence, cigarettes, uncomplicated; Z20.822 Contact with and (suspected) exposure to COVID-19; Z88.1 Allergy status to other antibiotic agents; Z88.3 Allergy status to other anti-infective agents; Z88.8 Allergy status to other drugs, medicaments and biological substances
CPT/HCPCS: 99212; C9803; G0463; U0003; U0005

== ENCOUNTER 2022-09-28 08:50 | Emergency (ER) | payer BC, SELFPAY ==
[2022-09-28 08:55] VITALS: BP 133/91; PULSE 94; RESP 18; TEMP 36.7; O2SAT 95; BMI 25.0
[2022-09-28 09:00] VITALS: BP 135/82; PULSE 87; O2SAT 98
--- NOTE | 2022-09-28 09:05 | US_ITS ---
FINAL REPORT TECHNIQUE: Transvaginal ultrasound imaging of the pelvis was obtained. CLINICAL HISTORY: first trimester bleeding FINDINGS: No intrauterine is identified. There are bilateral ovarian there is follicles. Ovaries are otherwise unremarkable. No free fluid is seen in the pelvic cul-de-sac. Uterus is within normal limits. Endometrium is unremarkable. IMPRESSION: No intrauterine identified. Reviewed, Interpreted and Dictated by Charli Lee III, MD Transcribed by Yajaira Tran Authenticated and [facility]
[2022-09-28 09:24] LABS: Microscopic, Urine URINE MICROSCOPIC (MICROSCOPIC)
--- NOTE | 2022-09-28 09:27 | PC.NURSE ---
pt transported to ultrasound via wheelchair.
[2022-09-28 09:31] LABS: Appearance,Urine CLEAR (Clear); Bilirubin,Urine Negative (Negative); Blood, Urine TRACE-I (Negative); Color,Urine YELLOW (Yellow); Glucose,Urine (UA) Negative (Negative); Ketones,Urine Negative (Negative); Leukocyte Esterase,Urine Negative (Negative); Nitrate,Urine Negative (Negative); Protein,Urine Negative (Negative); Specific Gravity, Urine <= 1.005 (1.005-1.030); Urobilinogen,Urine 0.2 EU/dl (0.2)
[2022-09-28 09:33] LABS: Urine Pregnancy, HCG Qual. Negative (Negative)
[2022-09-28 09:53] LABS: Squamous Epithelial Cell,Urine Occasional #/hpf (0-5); WBC,Urine Occasional #/hpf (0-3)
--- NOTE | 2022-09-28 09:53 | PC.NURSE ---
pt returned from ultrasound.
--- NOTE | 2022-09-28 09:57 | HMH.EDGENADL ---
Discharge Plan Disposition Patient Disposition: Home, Self-Care Condition: Good Chief Complaint: Vaginal Bleeding Prescriptions Prescriptions: No Action No Known Home Medications Referrals Follow up/Referrals: Lila Calixto MD [Primary Care Provider] - See instructions Clinical Impressions Clinical Impression: Crampy pain associated with menses Instructions Patient Instructions: DI for Vaginal Bleeding Discharge ED Provider: Nuno [facility] Adult HPI General Chief complaint: Vaginal Bleeding Stated complaint: bleeding with 5 week Time Seen by Provider: 09/28/22 08:56 Mode of Arrival: Ambulatory Source of Information: Patient Limitations: No Limitations Description of Symptoms (Recalled from ER Triage Doc. by RN): pt states she has vaginal bleeding that started around 6:30 this morning, states it is like her normal periods but she had a positive test 2 days ago, took another this morning to confirm and it was positive as well, reports cramping in her sides as well, last period 09/04/22 History of Present Illness HPI narrative: 31yo F presents to the ER with concern for vaginal bleeding. Reports episodes began this morning around 630. States she had a positive test 2 days ago at home and took another one this morning which was still positive. Complains of cramping bilateral pelvis. Last menstrual cycle was 04 September 2022. Patient is , counting this . No recent notes Related Data Home Medications Medication Instructions Recorded Confirmed No Known Home Medications 09/28/22 09/28/22 Allergies Allergy/AdvReac Type Severity Reaction Status Date / Time cephalexin [From Keflex] Allergy Intermediate rash and Verified 09/28/22 09:05 throat tightness Cephalosporins Allergy Verified 09/28/22 09:05 [facility] Disclaimer: The information contained in this section may have been updated after the patient was seen, as this information can be updated by other users. Social History Smoking Status: Current some day smoker tobacco type: cigarettes packs per day: 1 alcohol intake: never current occupational status: other Travel in the last 8 weeks: None housing: house ROS Obtained: Yes Systems reviewed as appropriate & no additional complaints except as documented Physical Exam General General appearance: alert and in no apparent distress Head Head exam: atraumatic Neck Neck exam: Present trachea midline Chest Chest inspection: Present symmetric chest wall rise Respiratory Respiratory exam: Present normal lung sounds bilaterally; Absent respiratory distress Cardiovascular Cardiovascular exam: Present regular rate and normal rhythm Abdominal Exam Abdominal exam: Present soft; Absent distention or tenderness Neurological Exam Neurological exam: Present alert and oriented X3 Psychiatric Psychiatric exam: Present normal affect Skin Skin exam: Present warm Medical Decision Making Medical Records Medical records reviewed: Yes I reviewed the patient's medical records. Bryant Inquiry Pt receiving controlled substance: No Vital Signs: 09/28/22 08:55 09/28/22 09:00 Temperature 98.0 F Temperature Source Oral Pulse Rate 87 Pulse Rate [Left Radial] 94 H Respiratory Rate 18 Blood Pressure 135/82 Blood Pressure [Right Arm] 133/91 H Blood Pressure Mean 96 Blood Pressure Mean [Right Arm] 105 Blood Pressure Source [Right Arm] Automatic Cuff Blood Pressure Position [Right Arm] Sitting 02 Sat by Pulse Oximetry 95 98 Oxygen Delivery Method Room Air Lab Data Lab results reviewed: Yes I reviewed the patient's lab results. Lab Results 09/28/22 09:20: Urine HCG, Qual Negative 09/28/22 09:20: Urine Color Yellow, Urine Appearance Clear, Urine pH 6.0, Ur Specific [place] <= 1.005, Urine Protein Negative, Urine Glucose (UA) Negative, Urine Ketones Negative, Urine Blood Trace-i, Urine Nitrate Negative, Ur
[2022-09-28 10:05] VITALS: BP 120/80; PULSE 79; RESP 18; TEMP 36.7; O2SAT 97
== END 2022-09-28 10:05 | disposition home or self-care (01) ==
PROVIDERS: Emergency Provider Family Medicine; PCP Family Medicine
DX: N94.6 Dysmenorrhea, unspecified (principal); F17.210 Nicotine dependence, cigarettes, uncomplicated
CPT/HCPCS: 76801; 81001; 81025; 99284

== ENCOUNTER 2022-10-12 15:16 | Emergency (ER) | payer BC, SELFPAY ==
[2022-10-12 15:50] VITALS: BP 134/88; PULSE 86; RESP 18; TEMP 37.1; O2SAT 98; BMI 26.8
[2022-10-12 15:53] LABS: Apearance,Urine Clear (Clear); Bilirubin,Urine Negative (Negative); Blood, Urine 2+ (Negative); Color,Urine Yellow (Yellow); Glucose,Urine (UA) Negative (Negative); Ketones,Urine Negative (Negative); Protein,Urine Negative (Negative); Specific Gravity, Urine 1.025 (1.005-1.030); UTC Leukocyte Esterase,Urine Negative (Negative); UTC Nitrate,Urine Negative (Negative); Urobilinogen,Urine 0.2 EU/dl (0.2)
--- NOTE | 2022-10-12 16:09 | EXP.UTC ---
Discharge Plan Disposition Patient Disposition: Home, Self-Care Condition: Good Prescriptions Prescriptions: No Action No Known Home Medications Referrals Follow up/Referrals: Lila Calixto MD [Primary Care Provider] - See instructions Activity Restrictions/Add. Instructions Additional Instructions/Restrictions: Go straight to [place] as discussed for further evaluation and examination Return if needed Straight to ER if any life threatening symptoms Clinical Impressions Clinical Impression: Urinary frequency Discharge ED Provider: Abigail Galan [facility] General Stated complaint: Possible UTI Mode of Arrival: Ambulatory Source of Information: Patient Limitations: No Limitations Time Seen by Provider: 10/12/22 16:10 Description of Symptoms (Recalled from Triage Doc. by RN): PATIENT C/O FREQUENCY AND URGENCY WITH URINATION AND INTERMITTEN VAGINAL BLEEDING HEENT Symptoms (Recalled from RN notes): No Resp Symptoms (Recalled from RN notes): No Skin Symptoms (Recalled from RN notes): No MS Symptoms (Recalled from RN notes): No Functional Status (Recalled from RN notes): WNL History of Present Illness Provider Complaint: Patient states that she has been having intermittent bleeding after positive test States that they have been drawing her blood and watching her levels States that she has had episodes of heavy bleeding, spotting and cramping States that today she was having feeling of urgency and frequency and she was worried that she may have a UTI and wanted to get her urine checked for that Related Data Home Medications Medication Instructions Recorded Confirmed No Known Home Medications 09/28/22 09/28/22 Allergies Allergy/AdvReac Type Severity Reaction Status Date / Time cephalexin [From Keflex] Allergy Intermediate rash and Verified 09/28/22 09:05 throat tightness Cephalosporins Allergy Verified 09/28/22 09:05 ciprofloxacin [From Cipro] Allergy Verified 10/12/22 16:05 Worker's Comp Is this a Worker's Comp case?: No [facility] Disclaimer: The information contained in this section may have been updated after the patient was seen, as this information can be updated by other users. Social History Smoking Status: Current some day smoker tobacco type: cigarettes packs per day: 1 alcohol intake: never current occupational status: other Travel in the last 8 weeks: None housing: house ROS Obtained: Yes All systems reviewed & no additional complaints except as documented and Yes Systems reviewed as appropriate & no additional complaints except as documented Constitutional Constitutional: Reports system reviewed and no additional complaints, except as documented, Reports as per HPI and Denies fever(s) Cardiovascular Cardiovascular: Reports system reviewed and no additional complaints, except as documented and Reports as per HPI Respiratory Respiratory: Reports system reviewed and no additional complaints, except as documented and Reports as per HPI Gastrointestinal Gastrointestingal: Reports system reviewed and no additional complaints, except as documented, as per HPI and cramping (on and off for several weeks) Genitourinary Female Genitourinary: Reports system reviewed and no additional complaints, except as documented, Reports as per HPI, Reports urinary frequency and Reports urinary urgency Comments: has been having episodes of bleeding after positive Physical Exam General General appearance: alert and in no apparent distress ENT ENT exam: Present mucous membranes moist Respiratory Respiratory exam: Present normal lung sounds bilaterally; Absent respiratory distress or wheezes Cardiovascular Cardiovascular exam: Present regular rate, normal rhythm and normal heart sounds Abdominal Exam Abdominal exam: Present soft and normal bowel sounds; Absent distention or tenderness Neurological Exam Neurological exam: Present alert, oriented X3 and n
[2022-10-12 16:17] VITALS: BP 134/88; PULSE 86; RESP 18; TEMP 37.1; O2SAT 98
== END 2022-10-12 16:20 | disposition home or self-care (01) ==
PROVIDERS: Emergency Provider Nurse Practitioner; PCP Family Medicine
DX: O26.891 Other specified pregnancy related conditions, first trimester (principal); R35.0 Frequency of micturition; O20.9 Hemorrhage in early pregnancy, unspecified; Z3A.01 Less than 8 weeks gestation of pregnancy; F17.210 Nicotine dependence, cigarettes, uncomplicated; O99.331 Smoking (tobacco) complicating pregnancy, first trimester
CPT/HCPCS: 81003; 99212; 99214; G0463

== ENCOUNTER 2022-12-22 10:54 | Emergency (ER) | payer BC, SELFPAY ==
[2022-12-22] VITALS (9 sets, daily range): BP systolic 119–134; BP diastolic 79–89; PULSE 75–85; RESP 16–21; TEMP 36.8–37.2; O2SAT 97–100; BMI 26.6; BMI 26.8
--- NOTE | 2022-12-22 11:20 | EXP.UTC ---
Discharge Plan Disposition Patient Disposition: Left Against Medical Advice Condition: Good Prescriptions Prescriptions: No Action No Known Home Medications Referrals Follow up/Referrals: Lila Calixto MD [Primary Care Provider] - See instructions Clinical Impressions Clinical Impression: Migraine Discharge ED Provider: Bj Lemos [facility] HPI General Chief complaint: PAIN Stated complaint: possible migraine, blurry vision Time Seen by Provider: 12/22/22 11:20 History of Present Illness Provider Complaint: Patient states that she has a hx of migraines which she is prescribed medications for but this is different States that for the last couple of days she has been seeing floaters States that she made appointment with her Eye Doctor for Wednesday States that earlier she started having a funny feeling dull ache on the right side of her head not like her other migraines and her vision was going in and out and as she was sitting in an interview states that vision went totally out for about 30sec - 1 min and then came back in but has been blurry on the right side States that she feels like a tingly feeling on the right side of her head and still seeing floaters so she came in concerned due to the symptoms being different from her typical migraines Related Data Home Medications Medication Instructions Recorded Confirmed No Known Home Medications 09/28/22 09/28/22 Allergies Allergy/AdvReac Type Severity Reaction Status Date / Time cephalexin [From Keflex] Allergy Intermediate rash and Verified 09/28/22 09:05 throat tightness Cephalosporins Allergy Verified 09/28/22 09:05 ciprofloxacin [From Cipro] Allergy Verified 10/12/22 16:05 [facility] Disclaimer: The information contained in this section may have been updated after the patient was seen, as this information can be updated by other users. Social History Smoking Status: Never smoker alcohol intake: never current occupational status: other Travel in the last 8 weeks: None housing: house ROS Obtained: Yes All systems reviewed & no additional complaints except as documented and Yes Systems reviewed as appropriate & no additional complaints except as documented Constitutional Constitutional: Reports system reviewed and no additional complaints, except as documented, Reports as per HPI and Reports headache(s) (reports dull, achy like tingly feeling in right side of head) Eyes Eyes: Reports system reviewed and no additional complaints, except as documented, Reports as per HPI, Reports blurry vision, Reports change in vision, Reports floaters and Reports loss of vision (for about 30 sec to 1 min earlier today then returned and blurry in rt eye) ENT Ears, Nose, Mouth, and Throat: Reports system reviewed and no additional complaints, except as documented, Reports as per HPI, Denies abnormal hearing, Denies dizziness and Reports headache(s) (reports dull, achy like tingly feeling in right side of head) Cardiovascular Cardiovascular: Reports system reviewed and no additional complaints, except as documented and Reports as per HPI Respiratory Respiratory: Reports system reviewed and no additional complaints, except as documented and Reports as per HPI Gastrointestinal Gastrointestingal: Reports system reviewed and no additional complaints, except as documented and as per HPI Musculoskeletal Musculoskeletal: Reports system reviewed and no additional complaints, except as documented, Reports as per HPI, Denies abnormal gait and Reports tingling (right side of head feels like skin is crawling ) Integumentary/Breasts Skin/Breast: Reports system reviewed and no additional complaints, except as documented and Reports as per HPI Neurologic Neurologic: Reports system reviewed and no additional complaints, except as documented, Reports as per HPI, Denies abnormal gait, Denies abnormal hearing,
--- NOTE | 2022-12-22 11:24 | PC.NURSE ---
PATIENT SENT TO ER PER Yancy YIN APRN FOR FURTHER EVALUATION. REPORT GIVEN TO Mercedes TRUONG RN BY Yancy YIN APRN. PATIENT AMBULATED TO ER WITH [facility] STAFF AT THIS TIME
--- NOTE | 2022-12-22 12:00 | CT_ITS ---
FINAL REPORT TECHNIQUE: Thin section axial images were obtained from skull base to vertex without contrast. Coronal reconstruction images were obtained from the axial data. Exam was performed using dose reduction technique. CLINICAL HISTORY: migraine vision changes. poss stroke COMPARISON: 12/02/2021 FINDINGS: There is no mass effect or midline shift. There is no hydrocephalus. There is no intracranial hemorrhage. The posterior fossa is without acute abnormality. The basilar cisterns are preserved. The soft tissues are without acute abnormality. No acute osseous abnormality is identified. IMPRESSION: No acute intracranial abnormality. Reviewed, Interpreted and Dictated by Mandy Elise MD Transcribed by Saloni Nguyen Authenticated and [facility]
--- NOTE | 2022-12-22 12:05 | CT_ITS ---
FINAL REPORT TECHNIQUE: Thin section axial images were obtained through the head after contrast administration per CT angiogram protocol. Multiplanar reconstruction images were obtained from the axial data. Exam was performed using dose reduction technique. CLINICAL HISTORY: hernandez vision change LKN 915, poss stroke FINDINGS: CTA HEAD: The intracerebral portions of the carotid arteries are patent. The anterior and middle cerebral arteries are patent. The basilar artery is patent. The left vertebral artery is dominant. The posterior cerebral arteries arise from the basilar artery. [place] is intact. There is no significant stenosis, aneurysm, or AVM. IMPRESSION: There is no significant stenosis, aneurysm, or AVM. Reviewed, Interpreted and Dictated by Mandy Elise MD Transcribed by Saloni Nguyen Authenticated and [facility]
--- NOTE | 2022-12-22 12:10 | CT_ITS ---
FINAL REPORT TECHNIQUE: Thin section axial CT with IV contrast supplemented with multiplanar reconstruction under CT angiogram protocol. This study was performed with techniques to keep radiation doses as low as reasonably achievable (ALARA). Individualized dose reduction techniques using automated exposure control or adjustment of mA and/or kV according to the patient''s size were employed. NASCET criteria was utilized during interpretation. CLINICAL HISTORY: hernandez vision change LKN 3h ago FINDINGS: Aortic arch: Arch shows no significant narrowing. Great vessel origins are widely patent. Right carotid: No significant stenosis is seen of the cervical common or internal carotid artery. Left carotid: No significant stenosis is seen of the cervical common or internal carotid artery. Vertebral: The vertebral arteries are patent. No significant stenosis is present. IMPRESSION: No evidence of stenosis. Reviewed, Interpreted and Dictated by Mandy Elise MD Transcribed by Saloni Nguyen Authenticated and [facility]
--- NOTE | 2022-12-22 12:10 | PC.NURSE ---
RADIOLOGY NOTIFIED OF STROKE PROTOCOL
--- NOTE | 2022-12-22 12:13 | PC.NURSE ---
pt transferred to room 1 for further evaluation for stroke workup per
--- NOTE | 2022-12-22 12:17 | ECG_ITS ---
APPROVED REPORT Exam: Resting ECG HR:66 bpm ECG Measurements Heart Rate 66 AXES SC 142 P 67 QRSd 86 QRS 81 QT 389 T 74 QTc 403 Conclusion SINUS RHYTHM NORMAL ECG UNCONFIRMED REPORT Electronically signed by : Edgar Matthews MD 12/23/2022 21:20:20
--- NOTE | 2022-12-22 12:19 | PC.NURSE ---
pt transported to ct via wheelchair.
[2022-12-22 12:20] LABS: POC Glucose,Bedside 100 (70-110)
--- NOTE | 2022-12-22 12:45 | PC.NURSE ---
[facility] has been called for consultation.
[2022-12-22 12:46] LABS: Chol/HDL Ratio 1.9 (1-3.5); Cholesterol 194 mg/dl (140-200); HDL Cholesterol 102 mg/dl (40-60); Triglycerides 56 mg/dl (30-150); VLDL Cholesterol 11 mg/dL (0-40)
[2022-12-22 12:50] LABS: Activated Partial Thrombo Time 25.7 seconds (22.8-30.6); Basophils % 0.6 % (0.1-2.0); Hematocrit 42.8 % (37.0-47.0); Hemoglobin 14.1 g/dL (12.2-16.2); INR 0.93 (0.9-1.1); Lymphocytes # 1.3 K/mm3 (0.7-4.5); Lymphocytes % 30.4 % (10-50); Mean Corpuscular HGB Conc 32.9 g/dL (31.8-35.4); Mean Corpuscular Hemoglobin 30.5 pg (27.0-31.2); Mean Corpuscular Volume 92.8 fl (81-99); Monocytes # 0.3 K/mm3 (0.1-1.0); Monocytes % 6.9 % (1.7-9.3); Neutrophils # 2.6 K/mm3 (1.8-7.8); Neutrophils % 61.1 % (37.0-80.0); Platelet Count 217 K/mm3 (142-424); Prothrombin Time 10.1 seconds (10.1-12.5); Red Blood Count 4.61 M/mm3 (4.20-5.40); Red Cell Distribution Width 13.6 % (11.5-17.5); White Blood Count 4.2 K/mm3 (4.8-10.8)
--- NOTE | 2022-12-22 12:50 | PC.NURSE ---
[facility] will call back when physician is available
--- NOTE | 2022-12-22 12:51 | PC.NURSE ---
Dr Lemos speaking with [facility] at this time.
--- NOTE | 2022-12-22 13:04 | HMH.EDGENADL ---
Discharge Plan Disposition Patient Disposition: Left Against Medical Advice Condition: Good Prescriptions Prescriptions: No Action No Known Home Medications Referrals Follow up/Referrals: Lila Calixto MD [Primary Care Provider] - See instructions Clinical Impressions Clinical Impression: Migraine Discharge ED Provider: Bj Lemos General Adult HPI General Chief complaint: PAIN Stated complaint: possible migraine, blurry vision Time Seen by Provider: 12/22/22 11:20 Mode of Arrival: Ambulatory Source of Information: Patient and Medical Record Limitations: No Limitations Description of Symptoms (Recalled from ER Triage Doc. by RN): c/o floaters in her right eye that started about 9:30 am while in during an interview causing vision lost for approx 30 seconds to a minute. Pt states that she has dull, achy pain and feeling of something crawling under her skin on her right side of face and jaw. Left eye has minimal floaters but it is mainly to compensate for her right eye and then it clears up after a few seconds. Has hx of migraines but this is not her typical symptoms with a migraine. History of Present Illness HPI narrative: This 32-year-old female with a history of migraines on as needed Ubrelvy presents to the emergency department with concerns of headache, abnormal sensation in her brain, right eye floaters with blurriness. Patient states the symptoms were sudden onset around 9:30 AM. She states she was interviewing for a job when it happened. Patient states she has migraines but they are usually different than this with headache stabbing into her eye and no significant vision changes. Patient states she has [place]/black floaters in the right eye greater than the left and she feels like her vision is attempting to compensate around the floaters causing blurriness in the right eye worse than the left. She does not have any numbness, tingling, weakness in the arms or legs, or other neurologic complaints at this time. Patient states she does not have any nausea, vomiting, dizziness, photophobia, or other positive review of systems. She describes a crawling sensation under the right side of her scalp that onset suddenly with the headache. She describes headache in the back right part of her skull. She has not taken any medications for her symptoms Related Data Home Medications Medication Instructions Recorded Confirmed No Known Home Medications 09/28/22 09/28/22 Allergies Allergy/AdvReac Type Severity Reaction Status Date / Time cephalexin [From Keflex] Allergy Intermediate rash and Verified 09/28/22 09:05 throat tightness Cephalosporins Allergy Verified 09/28/22 09:05 ciprofloxacin [From Cipro] Allergy Verified 10/12/22 16:05 [facility] Disclaimer: The information contained in this section may have been updated after the patient was seen, as this information can be updated by other users. Social History Smoking Status: Never smoker alcohol intake: never current occupational status: other Travel in the last 8 weeks: None housing: house ROS Obtained: Yes Systems reviewed as appropriate & no additional complaints except as documented Constitutional Constitutional: Denies chills, Denies fever(s), Reports headache(s) and Denies weakness Eyes Eyes: Reports change in vision and Reports floaters ENT Ears, Nose, Mouth, and Throat: Denies dizziness, Reports headache(s), Denies nasal congestion and Denies sore throat Cardiovascular Cardiovascular: Denies chest pain, Denies dyspnea and Denies leg edema Respiratory Respiratory: Denies cough and Denies dyspnea Gastrointestinal Gastrointestingal: Denies constipation, diarrhea, nausea or vomiting Genitourinary Female Genitourinary: Denies dysuria Musculoskeletal Musculoskeletal: Denies arthralgias, Denies myalgias, Denies numbness and Denies tingling Integumentary/Breasts
--- NOTE | 2022-12-22 13:22 | PC.NURSE ---
VISUAL ACUITY R EYE 20/25, L EYE 20/20, BOTH EYES 20/20 ER MD AWARE.
[2022-12-22 13:54] LABS: Alanine Aminotransferase 20 U/L (12-78); Albumin Level 4.8 g/dl (3.5-5.0); Albumin/Globulin Ratio 1.5 (1.1-1.8); Alkaline Phosphatase 55 U/L (38-126); Anion Gap 10.6 mEq/L (5-15); Aspartate Amino Transferase 28 U/L (14-36); Bilirubin,Total 0.4 mg/dl (0.2-1.3); Blood Urea Nitrogen 8 mg/dl (7-17); Carbon Dioxide 29 mmol/L (22.0-30.0); Chloride 102 mmol/L (98-107); Creatinine Clearance Estimated 136 mL/min (50-200); Estimated Glomerular Filt Rate 96 ml/min (>60); GFR (African American) 117 ML/MIN (>60); Globulin 3.1 g/dL (1.3-3.2); Glucose 100 mg/dl (74-100); Potassium 3.6 mmoL/L (3.5-5.1); Sodium 138 mmol/L (136-145); Total Protein,Serum 7.9 g/dl (6.3-8.2)
== END 2022-12-22 13:36 | disposition left against medical advice (07) ==
LOC: UTC 10:57 → ER 11:27
PROVIDERS: Emergency Provider Emergency Medicine; PCP Family Medicine
DX: G43.919 Migraine, unspecified, intractable, without status migrainosus (principal); H53.8 Other visual disturbances
CPT/HCPCS: 70450; 70496; 70498; 80053; 80061; 82962; 85025; 85610; 85730; 93005; 96374; 96375; 99285; Q9967

== ENCOUNTER 2023-03-30 08:00 | Emergency (ER) | payer BC, SELFPAY ==
[2023-03-30 08:15] VITALS: BP 130/89; PULSE 81; RESP 17; TEMP 36.9; O2SAT 98; BMI 26.6
--- NOTE | 2023-03-30 08:37 | EXP.UTC ---
Discharge Plan Disposition Patient Disposition: Home, Self-Care Condition: Good Prescriptions Prescriptions: New hvbyvrdmqfujczn-yfccwyvsm-QU [Bromfed DM] 2-30-10 mg/5 mL Syrup 10 ml PO Q4H PRN (Reason: Cough) Qty: 240 0RF ondansetron 4 mg tablet,disintegrating 4 mg PO Q8H PRN (Reason: nausea and vomiting) Qty: 10 0RF No Action Ubrelvy 50 mg Tablet 50 mg PO DAILYP PRN (Reason: Migraine Headache) Referrals Follow up/Referrals: Lila Calixto MD [Primary Care Provider] - See instructions Activity Restrictions/Add. Instructions Additional Instructions/Restrictions: *Monitor Temp, Over the counter Motrin or Tylenol as directed/as needed Tylenol every 4 hours and Motrin every 6 hours (as long as your family doctor has told you that you can take it) for fever or pain. and straight to ER if unable to lower temp less than 101.0 after medication given *Warm salt water gargles may help to soothe the throat *Throat Lozenges? *Warm fluids like tea with honey may help to soothe the throat? *Sleep elevated *Humidifier/Vaporizer *Your throat swab was sent for culture. Those results are typically sent to your primary care. Be sure to follow up in 2-3 days with your family doctor/primary care physician if no improvement so they can review those result and treat if necessary. If you don?t have a primary care doctor, I recommend you get one but in the mean time, you will have to return to a walk in clinic Follow up IMMEDIATELY for new or worsening symptoms or no Noticeable improvement over the next 48-72 hours. 911 for difficulty breathing or swallowing You were tested for today for Upper Respiratory Panel with COVID19 your test result should be back in the next 24 you may check for your results on the [facility] If your COVID test is positive you must quarantine for 5 days Clinical Impressions Clinical Impression: Viral upper respiratory tract infection with cough Stand Alone Forms Stand Alone Forms: Work/School Release Instructions Patient Instructions: Cough, DI for Nausea -- Adult, DI for Fever (Symptom) -- Adult Discharge ED Provider: Abigail Galan [facility] General Stated complaint: FEVER Mode of Arrival: Ambulatory Source of Information: Patient Limitations: No Limitations Time Seen by Provider: 03/30/23 08:38 Description of Symptoms (Recalled from Triage Doc. by RN): PATIENT C/O FEVER, NAUSEA, COUGH AND CHILLS X 3-4 DAYS AND DIARRHEA THAT STARTED THIS MORNING HEENT Symptoms (Recalled from RN notes): No Resp Symptoms (Recalled from RN notes): Yes Skin Symptoms (Recalled from RN notes): No MS Symptoms (Recalled from RN notes): No Functional Status (Recalled from RN notes): WNL History of Present Illness Provider Complaint: Patient states that for the last 3-4 days she has been having fever, chills, nausea, cough and today she started with diarrhea States that she was seen at Urgent Care yesterday and tested for flu, strep and COVID and they was all negative but today she was still not feeling any better so she came back in to get checked Related Data Home Medications Medication Instructions Recorded Confirmed ubrogepant 50 mg tablet (Ubrelvy) 50 mg PO DAILYP PRN Migraine 03/30/23 03/30/23 Headache Previous Rx's Medication Instructions Recorded cdrbxeyxhongajw-jjmpqtwesutthis-CH 10 ml PO Q4H PRN Cough #240 mL 03/30/23 2 mg-30 mg-10 mg/5 mL oral syrup (Bromfed DM) ondansetron 4 mg disintegrating 4 mg PO Q8H PRN nausea and 03/30/23 tablet vomiting #10 tabs Allergies Allergy/AdvReac Type Severity Reaction Status Date / Time cephalexin [From Keflex] Allergy Intermediate rash and Verified 09/28/22 09:05 throat tightness Cephalosporins Allergy Verified 09/28/22 09:05 ciprofloxacin [From Cipro] Allergy Verified 10/12/22 16:05 Worker's Comp Is this a Worker's Comp case?: No [facility] Disclaimer: The informatio
[2023-03-30 08:39] LABS: UTC Influenza A Antigen Negative (Negative); UTC Influenza B Antigen Negative (Negative)
[2023-03-30 08:40] VITALS: BP 130/89; PULSE 81; RESP 17; TEMP 36.9; O2SAT 98
[2023-03-30 08:59] LABS: UTC Pregnancy Test, Urine Negative (Negative)
[2023-03-30 09:11] LABS: Adenovirus,PCR Not Detected (NotDetected); Bordetella Pertussis Not Detected (NotDetected); Chlamydophila Pneumoniae, PCR Not Detected (NotDetected); Coronavirus 19, PCR Not Detected (NotDetected); Coronavirus 229E Not Detected (NotDetected); Coronavirus NL63 Not Detected (NotDetected); Coronavirus OC43 Not Detected (NotDetected); Coronovirus HKU1,PCR Not Detected (NotDetected); Human Metapneumovirus Not Detected (NotDetected); Influenza A, PCR Not Detected (NotDetected); Influenza AH1, 2009 Not Detected (NotDetected); Influenza AH1, PCR Not Detected (NotDetected); Influenza AH3,PCR Not Detected (NotDetected); Influenza B, PCR Not Detected (NotDetected); Mycoplasma Pneumoniae, PCR Not Detected (NotDetected); Parainfluenza 1, PCR Not Detected (NotDetected); Parainfluenza 2, PCR Not Detected (NotDetected); Parainfluenza 3, PCR Not Detected (NotDetected); Parainfluenza 4, PCR Not Detected (NotDetected); Respiratory Syncytial Virus Not Detected (NotDetected); Rhinovirus/Enterovirus Not Detected (NotDetected)
== END 2023-03-30 09:05 | disposition home or self-care (01) ==
PROVIDERS: Emergency Provider Nurse Practitioner; PCP Family Medicine
DX: R05.9 Cough, unspecified (principal); J06.9 Acute upper respiratory infection, unspecified; B34.9 Viral infection, unspecified
CPT/HCPCS: 81025; 87581; 87632; 87635; 87798; 87804; 99212; 99214; G0463

== ENCOUNTER 2023-05-07 08:17 | Emergency (ER) | payer OTHER, SELFPAY ==
[2023-05-07 08:25] VITALS: BP 121/84; PULSE 90; RESP 18; TEMP 36.8; O2SAT 98; BMI 28.1
--- NOTE | 2023-05-07 08:29 | EXP.UTC ---
Discharge Plan Disposition Patient Disposition: Home, Self-Care Condition: Good Prescriptions Prescriptions: New azithromycin [Zithromax] 250 mg tablet 250 mg PO UD DOSE PK Qty: 6 0RF Rx Instructions: Take two (2) tablets today, then one (1) tablet days #2 thru #5 methylprednisolone 4 mg Tablets,Dose Pack 4 mg PO DIRECTED Qty: 21 0RF bkiddsxxfejtnlo-hpspluswf-WE [Bromfed DM] 2-30-10 mg/5 mL Syrup 5 ml PO Q6H PRN (Reason: Cough) Qty: 240 0RF No Action nitrofurantoin monohyd/m-cryst 100 mg capsule 100 mg PO DAILY Patient Comments: TAKE 1 CAPSULE BY MOUTH TWICE DAILY FOR 7 DAYS Referrals Follow up/Referrals: Lila Calixto MD [Primary Care Provider] - See instructions Activity Restrictions/Add. Instructions Additional Instructions/Restrictions: Drink plenty of fluids. Take tylenol or ibuprofen for pain or fever. Take the medications as directed. Follow up with your regular doctor. GO TO THE ER FOR ANY WORSENING SYMPTOMS Stand Alone Forms Stand Alone Forms: Work/School Release Instructions Patient Instructions: DI for Sinusitis, Sinusitis, Acute Bronchitis, DI for Acute Bronchitis Discharge ED Provider: Braden Reina [facility] General Stated complaint: sore throat and congestion Time Seen by Provider: 05/07/23 08:29 History of Present Illness Provider Complaint: She states that for the past 3 days she has had worsening sore throat, sinus congestion, chest congestion, and a productive cough. She has taken 4 home covid-19 test and all 4 have been negative. Related Data Home Medications Medication Instructions Recorded Confirmed nitrofurantoin 100 mg PO DAILY abx 05/07/23 05/07/23 monohydrate/macrocrystals 100 mg capsule Previous Rx's Medication Instructions Recorded azithromycin 250 mg tablet 250 mg PO UD DOSE PK #6 tabs 05/07/23 (Zithromax) eitnhtpfllfdwuy-oarodsbzolqddae-UN 5 ml PO Q6H PRN Cough #240 mL 05/07/23 2 mg-30 mg-10 mg/5 mL oral syrup (Bromfed DM) methylprednisolone 4 mg tablets in 4 mg PO DIRECTED #21 tabs 05/07/23 a dose pack Allergies Allergy/AdvReac Type Severity Reaction Status Date / Time cephalexin [From flex] Allergy Intermediate rash and Verified 05/07/23 08:46 throat tightness Cephalosporins Allergy Verified 05/07/23 08:46 ciprofloxacin [From Cipro] Allergy Verified 05/07/23 08:46 [facility] Disclaimer: The information contained in this section may have been updated after the patient was seen, as this information can be updated by other users. Social History Smoking Status: Never smoker alcohol intake: never current occupational status: other Travel in the last 8 weeks: None housing: house ROS Obtained: Yes All systems reviewed & no additional complaints except as documented Constitutional Constitutional: Reports poor appetite Eyes Eyes: Reports system reviewed and no additional complaints, except as documented ENT Ears, Nose, Mouth, and Throat: Reports as per HPI Cardiovascular Cardiovascular: Reports system reviewed and no additional complaints, except as documented and Denies chest pain Respiratory Respiratory: Denies shortness of breath, Denies chest congestion, Reports cough, Denies stridor and Denies wheezing Gastrointestinal Gastrointestingal: Reports system reviewed and no additional complaints, except as documented; Denies abdominal pain, diarrhea or vomiting Musculoskeletal Musculoskeletal: Reports system reviewed and no additional complaints, except as documented and Denies arthralgias Integumentary/Breasts Skin/Breast: Reports system reviewed and no additional complaints, except as documented and Denies rash Neurologic Neurologic: Denies paresthesias Allergic/Immunologic Allergic/Immunologic: Denies wheezing Physical Exam General General appearance: alert and in no apparent distress Eye Eye exam: Presen
[2023-05-07 08:49] LABS: UTC Strep Screen (Rapid) Negative (Negative)
[2023-05-07 09:21] VITALS: BP 121/84; PULSE 90; RESP 18; TEMP 36.8; O2SAT 98
== END 2023-05-07 09:21 | disposition home or self-care (01) ==
PROVIDERS: Emergency Provider Nurse Practitioner Family; PCP Family Medicine
DX: J20.9 Acute bronchitis, unspecified (principal); J01.90 Acute sinusitis, unspecified; R07.0 Pain in throat; R09.81 Nasal congestion; R05.9 Cough, unspecified; R09.89 Other specified symptoms and signs involving the circulatory and respiratory systems
CPT/HCPCS: 87880; 99212; 99214; G0463

== ENCOUNTER 2023-06-28 15:19 | Emergency (ER) | payer OTHER, SELFPAY ==
[2023-06-28 15:30] VITALS: BP 121/58; PULSE 106; RESP 18; TEMP 36.8; O2SAT 99; BMI 27.6
--- NOTE | 2023-06-28 15:32 | EXP.UTC ---
Discharge Plan Disposition Patient Disposition: Home, Self-Care Condition: Good Prescriptions Prescriptions: New azithromycin [Zithromax] 250 mg tablet 250 mg PO UD DOSE PK Qty: 6 0RF Rx Instructions: Take two (2) tablets today, then one (1) tablet days #2 thru #5 benzonatate [benzonatate] 100 mg capsule 100 mg PO TIDP PRN (Reason: Cough) Qty: 30 0RF Referrals Follow up/Referrals: Lila Calixto MD [Primary Care Provider] - See instructions Activity Restrictions/Add. Instructions Additional Instructions/Restrictions: Drink plenty of fluids. Take tylenol or ibuprofen for pain or fever. Take the medications as directed. Follow up with your regular doctor. GO TO THE ER FOR ANY WORSENING SYMPTOMS Clinical Impressions Clinical Impression: Pharyngitis, Acute viral syndrome Stand Alone Forms Stand Alone Forms: Work/School Release Instructions Patient Instructions: DI for Pharyngitis/Tonsillopharyngitis -- Adult, DI for Viral Syndrome Discharge ED Provider: Braden Reina [facility] General Stated complaint: Sore throat,fever,body aches Time Seen by Provider: 06/28/23 15:28 History of Present Illness Provider Complaint: She states for the past 2 days she has had sore throat, fever, chills, and malaise. Related Data Previous Rx's Medication Instructions Recorded azithromycin 250 mg tablet 250 mg PO UD DOSE PK #6 tabs 06/28/23 (Zithromax) benzonatate 100 mg capsule 100 mg PO TIDP PRN Cough #30 caps 06/28/23 Allergies Allergy/AdvReac Type Severity Reaction Status Date / Time cephalexin [From Keflex] Allergy Intermediate rash and Verified 06/28/23 15:37 throat tightness Cephalosporins Allergy Verified 06/28/23 15:37 ciprofloxacin [From Cipro] Allergy Verified 06/28/23 15:37 [facility] Disclaimer: The information contained in this section may have been updated after the patient was seen, as this information can be updated by other users. Social History Smoking Status: Never smoker alcohol intake: never current occupational status: other Travel in the last 8 weeks: None housing: house ROS Obtained: Yes All systems reviewed & no additional complaints except as documented Constitutional Constitutional: Reports chills and Reports fever(s) Eyes Eyes: Denies eye discharge ENT Ears, Nose, Mouth, and Throat: Reports as per HPI Cardiovascular Cardiovascular: Denies chest pain Respiratory Respiratory: Denies chest congestion and Reports cough Gastrointestinal Gastrointestingal: Reports nausea; Denies abdominal pain, constipation, cramping, diarrhea or vomiting Musculoskeletal Musculoskeletal: Denies arthralgias Integumentary/Breasts Skin/Breast: Denies rash Neurologic Neurologic: Denies paresthesias Physical Exam General General appearance: alert and in no apparent distress Head Head exam: atraumatic, normocephalic and normal inspection Eye Eye exam: Present normal appearance, PERRL and EOMI ENT ENT exam: Present mucous membranes moist and normal external ear exam Expanded ENT Exam TM/Canal exam: Bilateral TM: erythema and bulging Nose exam: Absent sinus tenderness Mouth exam: Present normal external inspection; Absent drooling Teeth exam: Present normal inspection Throat exam: Present tonsillar erythema, tonsillomegaly and tonsillar exudate Neck Neck exam: Present normal inspection, full ROM and trachea midline; Absent tenderness, meningismus or lymphadenopathy Chest Chest inspection: Present normal inspection and symmetric chest wall rise; Absent tenderness Respiratory Respiratory exam: Present normal lung sounds bilaterally; Absent respiratory distress, wheezes or stridor Cardiovascular Cardiovascular exam: Present regular rate and normal rhythm; Absent systolic murmur or diastolic murmur Abdominal Exam Abdominal exam: Present soft and normal bowel sounds; Absent distention, tenderness, guarding, rebound or rigidity Extremities Exam Extremities exam: Present normal inspection and normal capillary refill; Absent calf tenderness Back Exam Back exam: Present normal inspection and full ROM; Absent tenderness, CVA tenderness (R) or CVA tenderness (L) Neurological Exam Neurological exam: Present alert, oriented X3 and CN II-XII intact Psychiatric Psychiatric exam: Present normal affect and normal mood Skin Skin exam: Present warm, dry, intact and normal color Medical Decision Making Medical Records Medical records reviewed: No I reviewed the patient's medical records. [place] Inquiry Pt receiving controlled substance: No Lab Data Lab results reviewed: Yes I reviewed the patient's lab results.
[2023-06-28 15:46] LABS: UTC Influenza A Antigen Negative (Negative); UTC Influenza B Antigen Negative (Negative)
[2023-06-28 15:47] LABS: UTC Strep Screen (Rapid) Negative (Negative)
[2023-06-28 16:10] VITALS: BP 121/58; PULSE 106; RESP 18; TEMP 36.8; O2SAT 99
== END 2023-06-28 16:10 | disposition home or self-care (01) ==
PROVIDERS: Emergency Provider Nurse Practitioner Family; PCP Family Medicine
DX: U07.1 COVID-19 (principal); R50.9 Fever, unspecified; J02.9 Acute pharyngitis, unspecified; R05.9 Cough, unspecified; R53.81 Other malaise; M79.18 Myalgia, other site
CPT/HCPCS: 87635; 87804; 87880; 99212; 99214; G0463

== ENCOUNTER 2024-05-24 08:06 | Emergency (ER) | payer OTHER, SELFPAY ==
[2024-05-24 08:34] VITALS: BP 129/91; PULSE 78; RESP 20; TEMP 36.8; O2SAT 98; BMI 29.8
--- NOTE | 2024-05-24 08:34 | ED_ITS ---
Discharge Plan Disposition Patient Disposition: Home, Self-Care Condition: Good Prescriptions Prescriptions: New amoxicillin 500 mg tablet 500 mg PO TID 10 Days Qty: 30 0RF [id number] [Bromfed DM] 2-30-10 mg/5 mL Syrup 5 ml PO Q6H PRN (Reason: Cough) Qty: 240 0RF No Action phentermine 15 mg capsule 15 mg PO DAILY Patient Comments: TAKE 1 CAPSULE BY MOUTH ONCE DAILY IN THE MORNING Referrals Follow up/Referrals: Lila Calixto MD [Primary Care Provider] - See instructions Activity Restrictions/Add. Instructions Additional Instructions/Restrictions: Drink plenty of fluids. Take tylenol or ibuprofen for pain or fever. Take the medications as directed. Follow up with your regular doctor. GO TO THE ER FOR ANY WORSENING SYMPTOMS Clinical Impressions Clinical Impression: Pharyngitis Stand Alone Forms Stand Alone Forms: Work/School Release Instructions Patient Instructions: Sore Throat, DI for Pharyngitis/Tonsillopharyngitis -- Adult Print Language Print Language: Salvadorean Discharge ED Provider: Braden Reina [facility] General Stated complaint: coughy, congestion, sore throat Time Seen by Provider: 05/24/24 08:34 Related Data Home Medications ?Medication ?Instructions ?Recorded ?Confirmed phentermine 15 mg capsule 15 mg PO DAILY 05/24/24 05/24/24 Previous Rx's ?Medication ?Instructions ?Recorded amoxicillin 500 mg tablet 500 mg PO TID 10 days #30 tabs 05/24/24 [id number] 5 ml PO Q6H PRN Cough #240 mL 05/24/24 2 mg-30 mg-10 mg/5 mL oral syrup (Bromfed DM) Allergies Allergy/AdvReac Type Severity Reaction Status Date / Time cephalexin (From Keflex) Allergy Intermediate rash and Verified 06/28/23 15:37 throat tightness Cephalosporins Allergy Verified 06/28/23 15:37 ciprofloxacin (From Cipro) Allergy Verified 06/28/23 15:37 [facility] Disclaimer: The information contained in this section may have been updated after the patient was seen, as this information can be updated by other users. Social History Smoking Status: Never smoker alcohol intake: never current occupational status: other Travel in the last 8 weeks: None housing: house Have you lived/traveled outside [place] in past 30 days?: No Contact w/someone who lives/traveled outside [place] past 30 days?: No Exposure to someone with infectious disease in past 14 days?: No Do you have a fever (greater than 100.4 F or 38 C)?: No Have you tested positive for COVID-19: No Exposed to someone with COVID-19 in past 14 days?: No Do you have a sore throat?: Yes Do you have a cough?: Yes Do you have any weakness?: No Do you have any diarrhea?: No Are you experiencing any unusual bleeding?: No Do you have any muscle aches/pain?: No Do you have any abdominal pain?: No Are you experiencing loss of taste or smell?: No ROS Obtained: Yes All systems reviewed & no additional complaints except as documented Constitutional Constitutional: Reports chills and Reports fever(s) Eyes Eyes: Denies eye discharge ENT Ears, Nose, Mouth, and Throat: Reports as per HPI Cardiovascular Cardiovascular: Denies chest pain Respiratory Respiratory: Denies chest congestion and Reports cough Gastrointestinal Gastrointestingal: Reports nausea; Denies abdominal pain, constipation, cramping, diarrhea or vomiting Musculoskeletal Musculoskeletal: Denies arthralgias Integumentary/Breasts Skin/Breast: Denies rash Neurologic Neurologic: Denies paresthesias Physical Exam General General appearance: alert and in no apparent distress Head Head exam: atraumatic, normocephalic and normal inspection Eye Eye exam: Present normal appearance, PERRL and EOMI ENT ENT exam: Present mucous membranes moist and normal external ear exam Expanded ENT Exam TM/Canal exam: Bilateral TM: erythema and bulging Nose exam: Absent sinus tenderness Mouth exam: Present normal external inspection; Absent drooling Teeth exam: Present normal inspection Throat exam: Present tonsillar erythema, tonsillomegaly and tonsillar exudate Neck Neck exam: Present normal inspection, full ROM and trachea midline; Absent tenderness, meningismus or lymphadenopathy Chest Chest inspection: Present normal inspection and symmetric chest wall rise; Absent tenderness Respiratory Respiratory exam: Present normal lung sounds bilaterally; Absent respiratory distress, wheezes, stridor or accessory muscle use Cardiovascular Cardiovascular exam: Present regular rate and normal rhythm; Absent systolic murmur or diastolic murmur Abdominal Exam Abdominal exam: Present soft and normal bowel sounds; Absent distention, tenderness, guarding, rebound or rigidity Extremities Exam Extremities exam: Present normal inspection and normal capillary refill; Absent calf tenderness Back Exam Back exam: Present normal inspection and full ROM; Absent tenderness, CVA tenderness (R) or CVA tenderness (L) Neurological Exam Neurological exam: Present alert, oriented X3 and CN II-XII intact Psychiatric Psychiatric exam: Present normal affect and normal mood Skin Skin exam: Present warm, dry, intact and normal color Medical Decision Making Medical Records Medical records reviewed: No I reviewed the patient's medical records. Screening: Per USPSTF and CDC recommendations, given the prevalence of disease in our region, it is our hospital?s policy to screen for HIV and viral Hepatitis for all patients aged 18 and over and those with ongoing risk factors. [place] Inquiry Pt receiving controlled substance: No
[2024-05-24 08:42] LABS: UTC Strep Screen (Rapid) Negative (Negative)
[2024-05-24 08:56] VITALS: BP 129/91; PULSE 78; RESP 20; TEMP 36.8
== END 2024-05-24 09:08 | disposition home or self-care (01) ==
PROVIDERS: Emergency Provider Nurse Practitioner Family; PCP Family Medicine
DX: J02.9 Acute pharyngitis, unspecified (principal)
CPT/HCPCS: 87880; 99213; G0381